=== PATIENT | female | born 1945 | race Asian ===

== ENCOUNTER 2016-07-05 15:50 | Inpatient (IN) | payer OTHER ==
[~2016-07-05] VITALS: Ht 162.6 cm; Wt 59.0 kg
--- NOTE | 2016-07-05 16:14 | Emergency Room Report ---
History of Present Illness General Chief Complaint: Abdominal Pain Source: Patient Present Illness HPI Patient presents with abdominal pain and near syncope today. She's been having episodes of abdominal pain for 10 days. Her doctor put her on antibiotics and then just started omeprazole 2 days ago. The pain is intermittent and sometimes severe. It is epigastric in radiates somewhat towards her back. She denies any fevers or chills he feels flushed at this time. She denies any chest pain, shortness of breath, cough, sore throat, dysuria, change in bowel habits. She never had this before. She denies pain at this time but has fairly significant nausea and a strange feeling in her abdomen - almost like pressure or emptiness. Was to have endoscopy Wednesday. Allergies: Coded Allergies: No Known Allergies (Unverified , 07/05/16) Patient History Past Medical History: see triage record Social History: Denies: alcohol use, smoking Social History Narrative B [place] and lives at home Reviewed Nursing Documentation: PMH: Agreed, PSxH: Agreed Nursing Documentation-PMH Past Medical History: No Stated History Review of Systems All Other Systems: negative except mentioned in HPI Physical Exam Vital Signs Date Time Temp Pulse Resp B/P Pulse Ox O2 Delivery O2 Flow Rate FiO2 07/05/16 15:50 98.2 115 18 118/66 99 Room Air Sp02 EP Interpretation: reviewed, normal General Appearance: well appearing, no apparent distress, GCS 15 Head: normocephalic Eyes: bilateral eye PERRL, bilateral eye normal inspection ENT: moist mucus membranes Neck: supple Respiratory: lungs clear, normal breath sounds Cardiovascular #1: regular rate, rhythm Cardiovascular #2: 2+ radial (R) Gastrointestinal: normal bowel sounds - slightly hyperactive, soft, no mass, no rebound, tenderness - epigastric Musculoskeletal: back normal, gait/station normal, normal range of motion Neurologic: alert, oriented x3, grossly normal Psychiatric: anxious Skin: other - plethoric and hot Medical Decision Making Diagnostic Impression: Primary Impression: Abdominal pain Qualified Codes: R10.13 - Epigastric pain Additional Impressions: Leukocytosis Qualified Codes: D72.825 - Bandemia Fever Qualified Codes: R50.81 - Fever presenting with conditions classified elsewhere ER Course Patient presents with fever, abdominal pain and near syncope. DDx: diverticulitis, gall bladder disease, UTI, hepatitis, viral gastroenteritis ( time course against this), amongst others. Complicated patient needing emergent evaluation with labs, EKG, CT abdomen. Treatment with IV hydration, zofran, pepcid. Patient declines other pain medicine at this time. Leukocytosis present. Normal lipase, LFTs. UA clear. CT with hepatic cysts. No other significant surgical pathology (preliminary reading). Patient still with intermittent pain and nausea. No guarding, but not appear well. Due to lack of definitive diagnosis and poor tolerance of PO, will admit for IV hydration, antibiotics, zofran and observation. Consider GI consultation. Admit med Dr. Bustamante. Laboratory Tests Test 07/05/16 16:39 07/05/16 18:01 White Blood Count 16.8 K/UL (4.8-10.8) H Red Blood Count 3.76 M/UL (4.20-5.40) L Hemoglobin 10.7 G/DL (12.0-16.0) L Hematocrit 32.4 % (37.0-47.0) L Mean Corpuscular Volume 86 FL (80-99) Mean Corpuscular Hemoglobin 28.5 PG (27.0-31.0) Mean Corpuscular Hemoglobin Concent 33.1 G/DL (32.0-36.0) Red Cell Distribution Width 11.4 % (11.6-14.8) L Platelet Count 270 K/UL (150-450) Mean Platelet Volume 6.3 FL (6.5-10.1) L Neutrophils (%) (Auto) 85.9 % (45.0-75.0) H Lymphocytes (%) (Auto) 8.6 % (20.0-45.0) L Monocytes (%) (Auto) 5.0 % (1.0-10.0) Eosinophils (%) (Auto) 0.2 % (0.0-3.0) Basophils (%) (Auto) 0.4 % (0.0-2.0) Prothrombin Time 11.1 SEC (9.30-11.50) Prothrombin Time INR 1.1 (0.9-1.1) PTT 35 SEC (23-33) H Sodium Level 133 mEQ/L (135-145) L Potassium Level 4.4 mEQ/L (3.4-4.9) Chloride Level 92 mEQ/L (98-107) L Carbon Dioxide Level 23 mEQ/L (20-30) Anion Gap 18 (5-15) H Blood Urea Nitrogen 8 mg/dL (7-23) Creatinine 0.6 mg/dL (0.5-0.9) Estimate Glomerular Filtration Rate > 60 mL/min (>60) Glucose Level 136 mg/dL (74-106) H Lactic Acid Level 0.80 mmol/L (0.66-2.22) Calcium Level 8.9 mg/dL (8.6-10.2) Total Bilirubin 0.6 mg/dL (0.0-1.2) Aspartate Amino Transferase (AST) 18 U/L (5-40) Alanine Aminotransferase (ALT) 7 U/L (3-33) Alkaline Phosphatase 96 U/L (35-104) Troponin I < 0.30 ng/mL (<=0.30) Total Protein 7.5 g/dL (6.6-8.7) Albumin 3.3 g/dL (3.5-5.2) L Globulin 4.2 g/dL Albumin/Globulin Ratio 0.7 (1.0-2.7) L Lipase 49 U/L (< 60) Urine Color Yellow Urine Appearance Clear Urine pH 7 (4.5-8.0) Urine Specific [place] 1.005 (1.005-1.035) Urine Protein Negative (NEGATIVE) Urine Glucose (UA) Negative (NEGATIVE) Urine Ketones 2+ (NEGATIVE) H Urine Occult Blood 2+ (NEGATIVE) H Urine Nitrite Negative (NEGATIVE) Urine Bilirubin Negative (NEGATIVE) Urine Urobilinogen Normal MG/DL (0.0-1.0) Urine Leukocyte Esterase Negative (NEGATIVE) Urine RBC 0-2 /HPF (0 - 2) Urine WBC 0-2 /HPF (0 - 2) Urine Squamous Epithelial Cells Occasional /LPF Urine Bacteria None /HPF (NONE) EKG Diagnostic Results Rate: tachycardiac ST Segments: no acute changes Rhythm Strip Diag. Results EP Interpretation: yes Rhythm: no PVC's, no ectopy, other - ST CT/MRI/US Diagnostic Results CT/MRI/US Diagnostic Results : Imaging Test Ordered: abd pelvis Impression liver cysts, no surgical pathology Impression: No definite acute process Doubt but cannot completely rule out cholelithiasis Hepatic cysts. Subcentimeter low-attenuation liver lesions, too small to characterize, most likely small cysts. No further followup needed Evidence of old granulomatous disease within the spleen and liver capsule Last Vital Signs Date Time Temp Pulse Resp B/P Pulse Ox O2 Delivery O2 Flow Rate FiO2 07/05/16 15:50 98.2 115 18 118/66 99 Room Air Status: improved Disposition: ADMITTED INPATIENT Condition: Serious Scripts Vancomycin HCl (Vancomycin HCl) 500 Mg Vial 250 MG ORAL Q6HR for 10 Days, VIAL Prov: ESTEPHANIA BUSTAMANTE 07/13/16 Hydrocodone Bit/Acetaminophen 10-325* (HYDROCODON-ACETAMINOPHN 10-325*) 1 Each Tablet 1 EA ORAL Q4H Y, #30 TAB Prov: ESTEPHANIA BUSTAMANTE 07/13/16 Magdiel Barakat M.D. Jul 05, 2016 16:14
[2016-07-05] MEDS ORDERED: Famotidine 20 MG/ 2ML VIAL IVP ONE (16:15)
[2016-07-05 16:45] VITALS: BP 104/80
[2016-07-05 16:58] LABS: LYMPHOCYTES % (AUTO) 8.6 % (20.0-45.0); MEAN CORPUSCULAR HEMOGLOBIN 28.5 PG (27.0-31.0); MEAN CORPUSCULAR HGB CONC 33.1 G/DL (32.0-36.0); MEAN CORPUSCULAR VOLUME 86 FL (80-99); MEAN PLATELET VOLUME 6.3 FL (6.5-10.1); NEUTROPHILS % (AUTO) 85.9 % (45.0-75.0); PLATELET COUNT 270 K/UL (150-450); RED BLOOD COUNT 3.76 M/UL (4.20-5.40); RED CELL DISTRIBUTION WIDTH 11.4 % (11.6-14.8); WHITE BLOOD COUNT 16.8 K/UL (4.8-10.8)
[2016-07-05 16:59] LABS: BASOPHILS % (AUTO) 0.4 % (0.0-2.0); EOSINOPHILS % (AUTO) 0.2 % (0.0-3.0)
[2016-07-05] MEDS ORDERED: Cefepime HCl 1 GM in D5W 55 ML IVPB ONE (17:00)
[2016-07-05] MEDS ORDERED: metroNIDAZOLE 500mg 100 ML IVPB ONE (17:00)
[2016-07-05 17:09] LABS: INR 1.1 (0.9-1.1); PROTHROMBIN TIME 11.1 SEC (9.30-11.50)
[2016-07-05 17:17] LABS: TROPONIN I < 0.30 ng/mL (<=0.30)
[2016-07-05 17:20] LABS: ALANINE AMINOTRANSFERASE 7 U/L (3-33); ALBUMIN/GLOBULIN RATIO 0.7 (1.0-2.7); ANION GAP 18 (5-15); ASPARTATE AMINO TRANSFERASE 18 U/L (5-40); CALCIUM 8.9 mg/dL (8.6-10.2); CARBON DIOXIDE 23 mEQ/L (20-30); CHLORIDE 92 mEQ/L (98-107); CREATININE 0.6 mg/dL (0.5-0.9); GLOMERULAR FILTRATION RATE > 60 mL/min (>60); HEMOLYSIS 81; LIPASE 49 U/L (< 60); POTASSIUM 4.4 mEQ/L (3.4-4.9); SODIUM 133 mEQ/L (135-145); TOTAL PROTEIN 7.5 g/dL (6.6-8.7)
[2016-07-05] MEDS ORDERED: Cefepime 1gm vial ONE (17:50)
[2016-07-05 18:28] LABS: APPEARANCE,URINE CLEAR; KETONES,URINE 2+ (NEGATIVE); LEUKOCYTE ESTERASE ,URINE NEGATIVE (NEGATIVE); NITRITE,URINE NEGATIVE (NEGATIVE); PH,URINE 7 (4.5-8.0); PROTEIN,URINE NEGATIVE (NEGATIVE); UROBILINOGEN,URINE NORMAL MG/DL (0.0-1.0)
[2016-07-05 18:37] LABS: RBC,URINE 0-2 /HPF (0 - 2); SQUAMOUS EPITHELIAL CELL,UR OCCASIONAL /LPF (NONE/OCC); WBC,URINE 0-2 /HPF (0 - 2)
[2016-07-05 19:29] VITALS: BP 107/48
[2016-07-05 21:26] VITALS: BP 102/55
[2016-07-05] MEDS ORDERED: NKM (22:39)
[2016-07-05 23:44] VITALS: BP 110/62
[2016-07-06] VITALS: BP 124/77
[2016-07-06] MEDS ORDERED: Vancomycin 1gm inj IVPB ONE (02:32)
[2016-07-06] MEDS ORDERED: Zosyn 3.375gm inj ONE (02:33)
[2016-07-06] MEDS: D5NS 1,000 ML IV SCH ×3 (02:39→22:13)
[2016-07-06] MEDS: Vancomycin 1gm in D5W 275ml IVPB SCH (02:39)
[2016-07-06 04:00] VITALS: BP 121/74
[2016-07-06] MEDS: Piperacillin/Tazobactam 3.375 GM in D5W 110 ML IVPB SCH ×3 (05:47→22:36)
[2016-07-06 07:48] LABS: BASOPHILS % (AUTO) 0.4 % (0.0-2.0); EOSINOPHILS % (AUTO) 1.2 % (0.0-3.0); LYMPHOCYTES % (AUTO) 21.3 % (20.0-45.0); MEAN CORPUSCULAR HEMOGLOBIN 27.3 PG (27.0-31.0); MEAN CORPUSCULAR VOLUME 85 FL (80-99); MEAN PLATELET VOLUME 6.6 FL (6.5-10.1); MONOCYTES % (AUTO) 6.1 % (1.0-10.0); PLATELET COUNT 249 K/UL (150-450); RED BLOOD COUNT 3.55 M/UL (4.20-5.40); RED CELL DISTRIBUTION WIDTH 11.7 % (11.6-14.8); WHITE BLOOD COUNT 9.4 K/UL (4.8-10.8)
[2016-07-06 07:50] LABS: ALANINE AMINOTRANSFERASE < 5 U/L (3-33); ALBUMIN/GLOBULIN RATIO 0.7 (1.0-2.7); ANION GAP 13 (5-15); ASPARTATE AMINO TRANSFERASE 8 U/L (5-40); CALCIUM 8.5 mg/dL (8.6-10.2); CARBON DIOXIDE 24 mEQ/L (20-30); CHLORIDE 106 mEQ/L (98-107); CREATININE 0.5 mg/dL (0.5-0.9); GLOMERULAR FILTRATION RATE > 60 mL/min (>60); HEMOLYSIS 1; POTASSIUM 3.8 mEQ/L (3.4-4.9); SODIUM 143 mEQ/L (135-145); TOTAL PROTEIN 6.3 g/dL (6.6-8.7)
--- NOTE | 2016-07-06 07:59 | History and Physical Report ---
DATE OF ADMISSION: 07/05/2016 CHIEF COMPLAINT: Abdominal pain HISTORY OF PRESENT ILLNESS: The patient is a 71-year-old female. She has no past medical history, presented with generalized malaise and flu-like symptoms. About a week ago, she developed some abdominal discomfort and then the day of admission, she had fevers and chills. She has had no vomiting. She only had one episode of diarrhea and she had a 10 pound weight loss. She saw her PMD, who ordered multiple medications for her, which she did not take and she does not know the names of these medications. She had blood test done, but she is unaware of any of the results because of continued worsening malaise, weakness and abdominal pain. She presented to the emergency room. On evaluation there, laboratories were notable for white count of 17,000, sodium of 133, and LFTs were unremarkable. Urine was clear. The patient had a CAT scan of the abdomen that according the ER physician was unremarkable. There is no report yet. The patient is now admitted. PAST SURGICAL HISTORY: None. PAST SURGICAL HISTORY: None. MEDICATIONS: Current medicines, none. ALLERGIES: None. SOCIAL HISTORY: The patient denies tobacco, ethanol, or drugs. FAMILY HISTORY: None. REVIEW OF SYSTEMS: Negative except for generalized malaise, weakness, fever, chills, abdominal discomfort, and one episode of diarrhea. PHYSICAL EXAMINATION: VITAL SIGNS: Temperature 97.4 degrees, blood pressure 121/74, pulse 86, and respirations 18. GENERAL: The patient is in no apparent distress. HEART: Regular rhythm. LUNGS: Clear. ABDOMEN: Soft, nontender, and nondistended. EXTREMITIES: Without clubbing, cyanosis, or edema. LABORATORY DATA: White count was 17,000, hemoglobin 10, hematocrit 32, and platelet count of 270,000. Coags are normal. Sodium 133 and potassium 4.4. Lactic acid was 0.8. LFTs were normal. Lipase is 49. ASSESSMENT: This is a pleasant female with complaints of abdominal pain. Leukocytosis of unclear etiology. 1. Abdominal pain. 2. Leukocytosis. 3. Dehydration. PLAN: Followup CT results. GI consultation. Check stool for occult blood. Empiric antibiotic therapy. Gentle hydration. Clear liquid diet for now. Jesus Whitney M.D. DR: Amor JOB#: [id number] CC:
[2016-07-06 08:09] VITALS: BP 121/70
[2016-07-06] MEDS: Heparin 5000 units/ml inj SUBQ SCH ×2 (09:16→21:32)
--- NOTE | 2016-07-06 11:33 | General Progress Note ---
Assessment/Plan Assessment/Plan GI Consult Dictated Abd pain and diarrhea ? Gastroenteritis Will check U/s and stools Add flagyl Needs EGD/Colon for evaluation of Anemia (in or outpt) Thank you Adrianne Subjective Allergies: Coded Allergies: No Known Allergies (Unverified , 07/05/16) Objective Last 24 Hour Vital Signs Date Time Temp Pulse Resp B/P Pulse Ox O2 Delivery O2 Flow Rate FiO2 07/06/16 08:09 96.8 83 17 121/70 97 Room Air 07/06/16 04:00 97.4 76 18 121/74 98 Room Air 07/06/16 00:00 97.2 78 18 124/77 98 Room Air 07/05/16 23:45 98.5 82 15 110/62 96 Room Air 07/05/16 23:44 98.5 80 15 110/62 96 Room Air 07/05/16 21:26 98.5 83 15 102/55 96 Room Air 07/05/16 19:29 98.5 89 18 107/48 98 Room Air 07/05/16 17:49 102.7 07/05/16 16:45 102.7 99 22 104/80 96 Room Air 07/05/16 15:50 98.2 115 18 118/66 99 Room Air Intake and Output 07/05/16 07/06/16 19:00 07:00 Intake Total 851 ml Output Total 200 ml Balance 651 ml Intake Oral 220 ml IV Total 631 ml Output Urine Total 200 ml # Voids 1 Laboratory Tests 07/05/16 16:39: White Blood Count 16.8H, Red Blood Count 3.76L, Hemoglobin 10.7L, Hematocrit 32.4L, Mean Corpuscular Volume 86, Mean Corpuscular Hemoglobin 28.5, Mean Corpuscular Hemoglobin Concent 33.1, Red Cell Distribution Width 11.4L, Platelet Count 270, Mean Platelet Volume 6.3L, Neutrophils (%) (Auto) 85.9H, Lymphocytes (%) (Auto) 8.6L, Monocytes (%) (Auto) 5.0, Eosinophils (%) (Auto) 0.2, Basophils (%) (Auto) 0.4, Prothrombin Time 11.1, Prothromb Time International Ratio 1.1, Activated Partial Thromboplast Time 35H, Sodium Level 133L, Potassium Level 4.4, Chloride Level 92L, Carbon Dioxide Level 23, Anion Gap 18H, Blood Urea Nitrogen 8, Creatinine 0.6, Estimat Glomerular Filtration Rate > 60, Glucose Level 136H, Lactic Acid Level 0.80, Calcium Level 8.9, Total Bilirubin 0.6, Aspartate Amino Transf (AST/SGOT) 18, Alanine Aminotransferase ( ALT/SGPT) 7, Alkaline Phosphatase 96, Troponin I < 0.30, Total Protein 7.5, Albumin 3.3L, Globulin 4.2, Albumin/Globulin Ratio 0.7L, Lipase 49 07/05/16 18:01: Urine Color Yellow, Urine Appearance Clear, Urine pH 7, Urine Specific [place] 1.005, Urine Protein Negative, Urine Glucose (UA) Negative, Urine Ketones 2+H, Urine Occult Blood 2+H, Urine Nitrite Negative, Urine Bilirubin Negative, Urine Urobilinogen Normal, Urine Leukocyte Esterase Negative, Urine RBC 0-2, Urine WBC 0-2, Urine Squamous Epithelial Cells Occasional, Urine Bacteria None 07/06/16 06:06: White Blood Count 9.4, Red Blood Count 3.55L, Hemoglobin 9.7L, Hematocrit 30.3L , Mean Corpuscular Volume 85, Mean Corpuscular Hemoglobin 27.3, Mean Corpuscular Hemoglobin Concent 32.0, Red Cell Distribution Width 11.7, Platelet Count 249, Mean Platelet Volume 6.6, Neutrophils (%) (Auto) 71.0, Lymphocytes (% ) (Auto) 21.3, Monocytes (%) (Auto) 6.1, Eosinophils (%) (Auto) 1.2, Basophils ( %) (Auto) 0.4, Sodium Level 143#, Potassium Level 3.8, Chloride Level 106, Carbon Dioxide Level 24, Anion Gap 13, Blood Urea Nitrogen 4L, Creatinine 0.5, Estimat Glomerular Filtration Rate > 60, Glucose Level 144H, Calcium Level 8.5L , Total Bilirubin 0.3, Aspartate Amino Transf (AST/SGOT) 8, Alanine Aminotransferase (ALT/SGPT) < 5, Alkaline Phosphatase 84, Total Protein 6.3L, Albumin 2.6L, Globulin 3.7, Albumin/Globulin Ratio 0.7L Height (Feet): 5 Height (Inches): 4.00 Weight (Pounds): 130 OLEG RANDALL Jul 06, 2016 11:33
--- NOTE | 2016-07-06 12:17 | Cardiology Report ---
APPROVED REPORT EKG Measurement Heart [id number] CA [id number] Sinus tachycardia Otherwise normal ECG
[2016-07-06 12:34] VITALS: BP 125/69
[2016-07-06] MEDS ORDERED: Influenza Virus Vaccine 0.5ml IM ONE (13:00)
[2016-07-06] MEDS ORDERED: Pneumococcal Vaccine 25mcg/0.5ml IM ONE (13:00)
[2016-07-06] MEDS ORDERED: D5NS 1000ml IV ONE (15:11)
[2016-07-06] MEDS ORDERED: Tubing IV Secondary IV ONE (15:11)
[2016-07-06 16:10] VITALS: BP 136/77
[2016-07-06] MEDS: metroNIDAZOLE 500mg 100 ML IVPB SCH ×2 (16:18→21:30)
[2016-07-06 20:00] VITALS: BP 139/70
--- NOTE | 2016-07-06 20:39 | Consultation ---
DATE OF CONSULTATION: INFECTIOUS DISEASES CONSULTATION REFERRING PHYSICIAN: Jesus Whitney M.D. REASON FOR CONSULTATION: Leukocytosis. HISTORY OF PRESENTING ILLNESS: This is a 71-year-old lady with no significant past medical history, who came in with some abdominal pain and some fevers. She denies any vomiting or diarrhea. She found to have a leukocytosis and an Infectious Diseases consultation has been obtained for antibiotics. PAST MEDICAL HISTORY: Nothing significant. MEDICATIONS: As an inpatient, she is on subcutaneous heparin, Zosyn, intravenous vancomycin, Zofran, Tylenol. ALLERGIES: No known drug allergies. SOCIAL HISTORY: She does not smoke, drink, or use drugs. FAMILY HISTORY: Noncontributory. REVIEW OF SYSTEMS: Respiratory: She did have fever and chills. Cardiac: No chest pain. No palpitation. No dizziness. No syncope. Gastrointestinal: She does have some abdominal pain in the epigastric area. No vomiting or diarrhea. PHYSICAL EXAMINATION: VITAL SIGNS: Temperature of 96.8, pulse of 83, respiratory rate 17, blood pressure 121/70, O2 saturation of 97%. HEENT: Pupils are equally reactive to light and accommodation. Mouth appears clean without thrush. NECK: Supple. No adenopathy. No JVD. CARDIOVASCULAR: Regular rate and rhythm. No murmurs. LUNGS: Clear to auscultation bilaterally. No crackles. No wheezes. ABDOMEN: Soft and nontender. No organomegaly. EXTREMITIES: No cyanosis. No clubbing. No edema. LABORATORY DATA: White count 15.8 yesterday, white count 9.4 on 07/06/2016, hemoglobin 9.7, hematocrit 30.3, MCV 85, platelet count of 249,000. Sodium 143, potassium 3.8, chloride 106, bicarb 24, BUN 4 creatinine 0.5, glucose 144. Calcium 8.5. Total bilirubin 0.3. AST 8, ALT less than 5, alkaline phosphatase 84. Total protein 6.3 and albumin 2.6. UA showing 0 to 2 white cells. On 07/05/2016 lipase was 49. ASSESSMENT: 1. This is a 71-year-old lady with no significant past medical history, who comes in with abdominal pain, fever and chills. Would be concerned regarding possible cholecystitis or pancreatitis. 2. We would also be concerned regarding urinary tract infection. PLAN: 1. Continue vancomycin and Zosyn for now. 2. We will follow up on blood cultures. 3. We will order urine cultures. 4. We will follow up on CT abdomen. I would like to thank, Dr. Whitney for this consultation. Shakuntala Ninfa Gaspar DR: Andrea JOB#: [id number] CC: Jesus Whitney M.D.
--- NOTE | 2016-07-06 20:59 | Consultation ---
DATE OF CONSULTATION: 07/06/2016 GASTROINTESTINAL CONSULTATION CONSULTING PHYSICIAN: Sudhir Silver M.D. CHIEF COMPLAINT: I was asked to see this patient for evaluation of abdominal pain. HISTORY OF PRESENT ILLNESS: The patient is a pleasant 71-year-old woman without significant past medical history who came into the hospital for a week of abdominal symptoms. The patient states that she has had some low-grade fevers and malaise and muscle pains, and also had noted some abdominal discomfort. She had some fevers and chills on the day of admission, and she came to the hospital. She has had no vomiting, but had some diarrhea this morning. She has also had a 10-pound weight loss. She was supposed to have some outpatient workup, but she was admitted to the hospital here. She has never had endoscopy or colonoscopy, and she denies any hematochezia. She is unaware of her anemia. She has been healthy with essentially no medical problems. She had a CT scan, which reportedly was negative in the emergency room, but her labs showed leukocytosis. PAST MEDICAL HISTORY: Otherwise unremarkable. FAMILY HISTORY: Negative. SOCIAL HISTORY: The patient does not smoke or drink alcohol. ALLERGIES: None. REVIEW OF SYSTEMS: Otherwise negative. PHYSICAL EXAMINATION: GENERAL: The patient is well-developed, well-nourished woman, seen in her room HEENT: Normocephalic and atraumatic. Sclerae anicteric. NECK: Supple. CHEST: Clear to auscultation. CARDIOVASCULAR: Regular rate. ABDOMEN: Soft with good bowel sounds. There was no appreciable tenderness to palpation or masses or guarding. The patient did point to the epigastric area as the region of her pain. EXTREMITIES: No edema. LABORATORY DATA: Noted. ASSESSMENT: This patient presents with anemia, which requires endoscopy and colonoscopy for workup to rule out a malignancy. This was explained to the patient, and she was advised to have these procedures done either an inpatient or as an outpatient. With respect to her presentation, however, the fevers, malaise, and chills are suggestive of possible viral syndrome or viral gastroenteritis. Bacterial enteritis will be another consideration and that could explain the fever and diarrhea as well. The patient should have her stools checked for usual pathogens and I would add the Flagyl to her current selection of antibiotics. Should the patient's symptoms persist and the workup is negative, then the patient to undergo further evaluation with endoscopy and colonoscopy earlier. Otherwise, it is probably better to wait until her acute illness is resolved before evaluating her for problem for anemia. RECOMMENDATIONS: Per above discussion and per orders written in the chart. Thank you for asking me to participate in the care of this patient. Sudhir Silver M.D. DR: STEFAN JOB#: [id number] CC:
[2016-07-07] VITALS: BP 126/72
[2016-07-07] MEDS: Vancomycin 1gm in D5W 275ml IVPB SCH (02:36)
[2016-07-07 04:00] VITALS: BP 124/73
--- NOTE | 2016-07-07 05:39 | General Progress Note ---
Assessment/Plan Problem List: (1) Fever ICD Codes: R50.9 - Fever, unspecified SNOMED: 469069567 Qualifiers: Qualified Codes: R50.81 - Fever presenting with conditions classified elsewhere (2) Leukocytosis ICD Codes: D72.829 - Elevated white blood cell count, unspecified SNOMED: 574686704, 716722559 Qualifiers: Qualified Codes: D72.825 - Bandemia (3) Abdominal pain ICD Codes: R10.9 - Unspecified abdominal pain SNOMED: [id number], [id number] Qualifiers: Qualified Codes: R10.13 - Epigastric pain Status: stable, progressing Assessment/Plan ivf antiemetics as needed follow up cultures follow up ultrasound advance diet Subjective ROS Limited/Unobtainable: No Constitutional: Reports: malaise, weakness HEENT: Reports: no symptoms Cardiovascular: Reports: no symptoms Respiratory: Reports: no symptoms Gastrointestinal/Abdominal: Reports: abdominal pain, diarrhea Genitourinary: Reports: no symptoms Neurologic/Psychiatric: Reports: no symptoms Endocrine: Reports: no symptoms Hematologic/Lymphatic: Reports: anemia Allergies: Coded Allergies: No Known Allergies (Unverified , 07/05/16) All Systems: reviewed and negative except above Subjective tolerated clear last night. abd delores done- no results. no vomiting. had some mild diarrhea. feels "a little better." Objective Last 24 Hour Vital Signs Date Time Temp Pulse Resp B/P Pulse Ox O2 Delivery O2 Flow Rate FiO2 07/07/16 04:00 98.6 85 18 124/73 96 Room Air 07/07/16 00:00 98.2 86 18 126/72 93 Room Air 07/06/16 20:00 100.0 89 20 139/70 98 Room Air 07/06/16 16:10 98.6 92 22 136/77 95 Room Air 07/06/16 12:34 97.1 82 18 125/69 99 Room Air 07/06/16 08:09 96.8 83 17 121/70 97 Room Air Intake and Output 07/06/16 07/07/16 19:00 07:00 Intake Total 360 ml Balance 360 ml Intake Oral 360 ml # Voids 2 2 # Bowel Movements 1 Laboratory Tests 07/06/16 06:06: White Blood Count 9.4, Red Blood Count 3.55L, Hemoglobin 9.7L, Hematocrit 30.3L , Mean Corpuscular Volume 85, Mean Corpuscular Hemoglobin 27.3, Mean Corpuscular Hemoglobin Concent 32.0, Red Cell Distribution Width 11.7, Platelet Count 249, Mean Platelet Volume 6.6, Neutrophils (%) (Auto) 71.0, Lymphocytes (% ) (Auto) 21.3, Monocytes (%) (Auto) 6.1, Eosinophils (%) (Auto) 1.2, Basophils ( %) (Auto) 0.4, Sodium Level 143#, Potassium Level 3.8, Chloride Level 106, Carbon Dioxide Level 24, Anion Gap 13, Blood Urea Nitrogen 4L, Creatinine 0.5, Estimat Glomerular Filtration Rate > 60, Glucose Level 144H, Calcium Level 8.5L , Total Bilirubin 0.3, Aspartate Amino Transf (AST/SGOT) 8, Alanine Aminotransferase (ALT/SGPT) < 5, Alkaline Phosphatase 84, Total Protein 6.3L, Albumin 2.6L, Globulin 3.7, Albumin/Globulin Ratio 0.7L 07/06/16 17:03: Stool Occult Blood Negative Height (Feet): 5 Height (Inches): 4.00 Weight (Pounds): 130 General Appearance: WD/WN, alert Neck: normal alignment, supple, normal inspection Cardiovascular: normal rate Respiratory/Chest: chest wall non-tender, lungs clear Abdomen: normal bowel sounds, non tender, soft, no organomegaly, no mass Edema: no edema noted Arm (L), no edema noted Arm (R), no edema noted Leg (L), no edema noted Leg (R), no edema noted Pedal (L), no edema noted Pedal (R), no edema noted Generalized Neurologic: offline cutter II-XII grossly normal, no motor/sensory deficits, abnormal gait , alert ESTEPHANIA BUSTAMANTE Jul 07, 2016 05:39
[2016-07-07] MEDS: metroNIDAZOLE 500mg 100 ML IVPB SCH (06:01)
[2016-07-07 06:59] LABS: BASOPHILS % (AUTO) 0.5 % (0.0-2.0); EOSINOPHILS % (AUTO) 0.8 % (0.0-3.0); LYMPHOCYTES % (AUTO) 17.5 % (20.0-45.0); MEAN CORPUSCULAR HEMOGLOBIN 27.8 PG (27.0-31.0); MEAN CORPUSCULAR HGB CONC 32.1 G/DL (32.0-36.0); MEAN CORPUSCULAR VOLUME 87 FL (80-99); MEAN PLATELET VOLUME 6.1 FL (6.5-10.1); MONOCYTES % (AUTO) 6.7 % (1.0-10.0); NEUTROPHILS % (AUTO) 74.5 % (45.0-75.0); PLATELET COUNT 252 K/UL (150-450); RED BLOOD COUNT 3.63 M/UL (4.20-5.40); RED CELL DISTRIBUTION WIDTH 11.1 % (11.6-14.8)
[2016-07-07] MEDS: Piperacillin/Tazobactam 3.375 GM in D5W 110 ML IVPB SCH (07:06)
[2016-07-07 07:12] LABS: ALANINE AMINOTRANSFERASE 5 U/L (3-33); ALBUMIN/GLOBULIN RATIO 0.7 (1.0-2.7); ANION GAP 13 (5-15); ASPARTATE AMINO TRANSFERASE 10 U/L (5-40); CALCIUM 8.6 mg/dL (8.6-10.2); CARBON DIOXIDE 25 mEQ/L (20-30); CHLORIDE 102 mEQ/L (98-107); CREATININE 0.6 mg/dL (0.5-0.9); GLOMERULAR FILTRATION RATE > 60 mL/min (>60); HEMOLYSIS 0; SODIUM 140 mEQ/L (135-145); TOTAL PROTEIN 6.3 g/dL (6.6-8.7)
[2016-07-07 08:00] VITALS: BP 120/74
[2016-07-07] MEDS: D5NS 1,000 ML IV SCH (08:18)
[2016-07-07] MEDS: Heparin 5000 units/ml inj SUBQ SCH ×2 (08:46→21:21)
--- NOTE | 2016-07-07 11:02 | Diagnostic Imaging Report ---
Indications: Abdominal pain and nausea Technique: Transabdominal real-time grayscale and duplex Doppler imaging of the upper abdomen and retroperitoneum was performed. Findings: Comparison: CT abdomen pelvis 07/05/2016. Liver normal size and surface contour, parenchymal echogenicity. Several adjacent circumscribed anechoic foci in left lobe up to 17 mm. No additional Focal lesions. Gallbladder unremarkable. No intraluminal stones or sludge. No mural thickening or adjacent fluid collections. Sonographic Gabriel sign not reported.. Bile ducts normal caliber. Common bile duct 6 mm. Pancreas visualized portions unremarkable. Spleen unremarkable. Right kidney unremarkable. Left kidney unremarkable. Abdominal aorta, intrahepatic portion of inferior vena cava patent, normal caliber. Duplex Doppler imaging demonstrates antegrade flow in splenic, portal, hepatic veins. No ascites. IMPRESSION: Hepatic cysts Otherwise negative abdominal ultrasound.
--- NOTE | 2016-07-07 11:22 | Infectious Diseases Prog Note ---
Assessment/Plan Assessment/Plan antibiotics : vancomycin iv, zosyn, flagyl A 1. c.diff colitis 2. fever improving P 1. continue flagyl 12 more days 2. d/c vancomycin iv, zosyn 3. will follow up cultures Subjective Constitutional: Denies: chills, fever Respiratory: Denies: dry cough, shortness of breath Gastrointestinal/Abdominal: Reports: diarrhea, nausea, Denies: vomiting Musculoskeletal: Reports: pain - in abdomen Allergies: Coded Allergies: No Known Allergies (Unverified , 07/05/16) Objective Vital Signs Last 24 Hour Vital Signs Date Time Temp Pulse Resp B/P Pulse Ox O2 Delivery O2 Flow Rate FiO2 07/07/16 08:00 100.0 86 17 120/74 98 Room Air 07/07/16 04:00 98.6 85 18 124/73 96 Room Air 07/07/16 00:00 98.2 86 18 126/72 93 Room Air 07/06/16 20:00 100.0 89 20 139/70 98 Room Air 07/06/16 16:10 98.6 92 22 136/77 95 Room Air 07/06/16 12:34 97.1 82 18 125/69 99 Room Air Height (Feet): 5 Height (Inches): 4.00 Weight (Pounds): 130 Respiratory/Chest: lungs clear Cardiovascular: normal rate, regular rhythm, no gallop/murmur Abdomen: tender - epigastric area Extremities: no edema Microbiology Date/Time Source Procedure Growth Status 07/05/16 16:40 Blood Blood Culture - Preliminary NO GROWTH AFTER 24 HOURS Resulted 07/05/16 16:25 Blood Blood Culture - Preliminary NO GROWTH AFTER 24 HOURS Resulted 07/06/16 17:03 Stool Stool Culture Pending Resulted 07/06/16 17:03 Stool Clostridium difficile Toxin Assay - Final Resulted 07/06/16 17:03 Urine,Clean Catch Urine Culture - Preliminary NO GROWTH Resulted Laboratory Tests Test 07/06/16 17:03 07/07/16 05:45 Stool Occult Blood Negative (NEGATIVE) White Blood Count 10.0 K/UL (4.8-10.8) Red Blood Count 3.63 M/UL (4.20-5.40) L Hemoglobin 10.1 G/DL (12.0-16.0) L Hematocrit 31.4 % (37.0-47.0) L Mean Corpuscular Volume 87 FL (80-99) Mean Corpuscular Hemoglobin 27.8 PG (27.0-31.0) Mean Corpuscular Hemoglobin Concent 32.1 G/DL (32.0-36.0) Red Cell Distribution Width 11.1 % (11.6-14.8) L Platelet Count 252 K/UL (150-450) Mean Platelet Volume 6.1 FL (6.5-10.1) L Neutrophils (%) (Auto) 74.5 % (45.0-75.0) Lymphocytes (%) (Auto) 17.5 % (20.0-45.0) L Monocytes (%) (Auto) 6.7 % (1.0-10.0) Eosinophils (%) (Auto) 0.8 % (0.0-3.0) Basophils (%) (Auto) 0.5 % (0.0-2.0) Sodium Level 140 mEQ/L (135-145) Potassium Level 3.0 mEQ/L (3.4-4.9) L Chloride Level 102 mEQ/L (98-107) Carbon Dioxide Level 25 mEQ/L (20-30) Anion Gap 13 (5-15) Blood Urea Nitrogen 4 mg/dL (7-23) L Creatinine 0.6 mg/dL (0.5-0.9) Estimat Glomerular Filtration Rate > 60 mL/min (>60) Glucose Level 184 mg/dL (74-106) H Calcium Level 8.6 mg/dL (8.6-10.2) Total Bilirubin 0.3 mg/dL (0.0-1.2) Aspartate Amino Transf (AST/SGOT) 10 U/L (5-40) Alanine Aminotransferase (ALT/SGPT) 5 U/L (3-33) Alkaline Phosphatase 84 U/L (35-104) Total Protein 6.3 g/dL (6.6-8.7) L Albumin 2.6 g/dL (3.5-5.2) L Globulin 3.7 g/dL Albumin/Globulin Ratio 0.7 (1.0-2.7) L SINAN AYOUB Jul 07, 2016 11:22
[2016-07-07] MEDS: HYDROmorphone 1mg/ml Carpuject IVP PRN ×3 (12:24→22:06)
[2016-07-07 12:28] VITALS: BP 127/67
--- NOTE | 2016-07-07 12:56 | Diagnostic Imaging Report ---
Clinical Indication: Abdominal pain Technique: Patient given oral contrast. IV administration nonionic contrast. Venous phase spiral acquisition obtained through the abdomen and pelvis. Multiplanar reconstructions were generated. Total dose length product 79 mGycm. CTDIvol(s) 16 mGy Comparison: None Findings: The appendix is not clearly demonstrated, but there are no findings to suggest acute appendicitis. No evidence of diverticulosis or diverticulitis. No small bowel distention small bowel wall thickening. No free or loculated intraperitoneal air or fluid. Distal esophagus, stomach, duodenum are unremarkable. Gallbladder is distended. There is slight irregularity of the tip of the fundus, which probably just represents redundant mucosa but a small gallstone could not be excluded. No definite gallstones otherwise. No biliary ductal dilatation. Liver demonstrates a capsular calcification in segment 4B, as well as multiple cysts and multiple low-attenuation lesions which are too small to characterize. The pancreas is unremarkable. The spleen demonstrates numerous calcifications. The adrenals, kidneys are unremarkable. No mesenteric or retroperitoneal mass or adenopathy. No pelvic mass or adenopathy. Uterus and adnexal structures appear unremarkable. The included lung bases are clear. Heart is mildly enlarged. The bones are unremarkable except for degenerative changes of the lumbosacral junction.. Impression: No definite acute process Doubt but cannot completely rule out cholelithiasis Hepatic cysts. Subcentimeter low-attenuation liver lesions, too small to characterize, most likely small cysts. No further followup needed Evidence of old granulomatous disease within the spleen and liver capsule This agrees with the preliminary interpretation provided overnight by Dr. Warren The CT scanner at [facility] is accredited by the [employer] and the scans are performed using protocols designed to limit radiation exposure to as low as reasonably achievable to attain images of sufficient resolution adequate for diagnostic evaluation.
[2016-07-07] MEDS: metroNIDAZOLE 500mg tab ORAL SCH ×2 (14:25→21:19)
[2016-07-07 16:00] VITALS: BP 135/82
--- NOTE | 2016-07-07 16:36 | General Progress Note ---
Assessment/Plan Assessment/Plan Assessment - C Diff (+) - Diarrhea - abd pain - anemia Recommendations - Flagyl x 10 days - Outpt EGD/Colon Subjective Allergies: Coded Allergies: No Known Allergies (Unverified , 07/05/16) Subjective Feels OK / better d/w patient re anemia Ukrainian speaking RN used to ensure communication advised should get EGD/Colon to screen for GI source, even though OB (-) Objective Last 24 Hour Vital Signs Date Time Temp Pulse Resp B/P Pulse Ox O2 Delivery O2 Flow Rate FiO2 07/07/16 12:28 98.2 89 17 127/67 98 Room Air 07/07/16 08:00 100.0 86 17 120/74 98 Room Air 07/07/16 04:00 98.6 85 18 124/73 96 Room Air 07/07/16 00:00 98.2 86 18 126/72 93 Room Air 07/06/16 20:00 100.0 89 20 139/70 98 Room Air 07/06/16 16:10 98.6 92 22 136/77 95 Room Air Intake and Output 07/06/16 07/07/16 19:00 07:00 Intake Total 610 ml Balance 610 ml Intake Oral 610 ml # Voids 2 3 # Bowel Movements 1 Laboratory Tests 07/06/16 17:03: Stool Occult Blood Negative 07/07/16 05:45: White Blood Count 10.0, Red Blood Count 3.63L, Hemoglobin 10.1L, Hematocrit 31.4L, Mean Corpuscular Volume 87, Mean Corpuscular Hemoglobin 27.8, Mean Corpuscular Hemoglobin Concent 32.1, Red Cell Distribution Width 11.1L, Platelet Count 252, Mean Platelet Volume 6.1L, Neutrophils (%) (Auto) 74.5, Lymphocytes (%) (Auto) 17.5L, Monocytes (%) (Auto) 6.7, Eosinophils (%) (Auto) 0.8, Basophils (%) (Auto) 0.5, Sodium Level 140, Potassium Level 3.0L, Chloride Level 102, Carbon Dioxide Level 25, Anion Gap 13, Blood Urea Nitrogen 4L, Creatinine 0.6, Estimat Glomerular Filtration Rate > 60, Glucose Level 184H, Calcium Level 8.6, Total Bilirubin 0.3, Aspartate Amino Transf (AST/SGOT) 10, Alanine Aminotransferase (ALT/SGPT) 5, Alkaline Phosphatase 84, Total Protein 6.3L, Albumin 2.6L, Globulin 3.7, Albumin/Globulin Ratio 0.7L Height (Feet): 5 Height (Inches): 4.00 Weight (Pounds): 130 Objective Thin woman NCAT supple CTA RRR Soft ND NT no edema OLEG RANDALL Jul 07, 2016 16:36
[2016-07-07] MEDS ORDERED: Tubing IV Secondary IV ONE (17:53)
[2016-07-07 20:00] VITALS: BP 132/78
[2016-07-08] VITALS: BP 114/68
[2016-07-08 03:45] VITALS: BP 112/69
[2016-07-08] MEDS: HYDROmorphone 1mg/ml Carpuject IVP PRN ×4 (04:53→19:02)
[2016-07-08] MEDS: metroNIDAZOLE 500mg tab ORAL SCH ×3 (05:44→21:48)
--- NOTE | 2016-07-08 08:33 | General Progress Note ---
Assessment/Plan Problem List: (1) Fever ICD Codes: R50.9 - Fever, unspecified SNOMED: 884526239 Qualifiers: Qualified Codes: R50.81 - Fever presenting with conditions classified elsewhere (2) Leukocytosis ICD Codes: D72.829 - Elevated white blood cell count, unspecified SNOMED: 003736785, 101448872 Qualifiers: Qualified Codes: D72.825 - Bandemia (3) Abdominal pain ICD Codes: R10.9 - Unspecified abdominal pain SNOMED: 57115612, 302222537 Qualifiers: Qualified Codes: R10.13 - Epigastric pain Assessment/Plan ivf antiemetics as needed po flagyl advance diet dc planning today depending on pain/diarrhea Subjective ROS Limited/Unobtainable: No Constitutional: Reports: malaise, weakness HEENT: Reports: no symptoms Cardiovascular: Reports: no symptoms Respiratory: Reports: no symptoms Gastrointestinal/Abdominal: Reports: abdominal pain, diarrhea Genitourinary: Reports: no symptoms Neurologic/Psychiatric: Reports: no symptoms Endocrine: Reports: no symptoms Hematologic/Lymphatic: Reports: no symptoms Allergies: Coded Allergies: No Known Allergies (Unverified , 07/05/16) All Systems: reviewed and negative except above Subjective diarrhea is less. still c/o moderate to severe abd pain. cdiff +. on po flagyl Objective Last 24 Hour Vital Signs Date Time Temp Pulse Resp B/P Pulse Ox O2 Delivery O2 Flow Rate FiO2 07/08/16 05:27 97.9 07/08/16 03:45 97.9 75 18 112/69 96 Room Air 07/08/16 00:00 97.7 76 18 114/68 95 Room Air 07/07/16 20:00 97.9 85 22 132/78 93 Room Air 07/07/16 16:00 98.2 87 22 135/82 96 Room Air 07/07/16 12:28 98.2 89 17 127/67 98 Room Air Intake and Output 07/07/16 07/08/16 19:00 07:00 Intake Total 810.0 ml 580 ml Balance 810.0 ml 580 ml Intake Oral 500 ml 580 ml IV Total 310.0 ml # Voids 3 4 # Bowel Movements 1 1 Height (Feet): 5 Height (Inches): 4.00 Weight (Pounds): 130 Objective General Appearance: WD/WN, alert Neck: normal alignment, supple, normal inspection Cardiovascular: normal rate Respiratory/Chest: chest wall non-tender, lungs clear Abdomen: normal bowel sounds, non tender, soft, no organomegaly, no mass Edema: no edema noted Arm (L), no edema noted Arm (R), no edema noted Leg (L), no edema noted Leg (R), no edema noted Pedal (L), no edema noted Pedal (R), no edema noted 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
[2016-07-08 08:34] VITALS: BP 122/77
[2016-07-08] MEDS: Heparin 5000 units/ml inj SUBQ SCH ×2 (10:06→21:45)
--- NOTE | 2016-07-08 10:32 | Infectious Diseases Prog Note ---
Assessment/Plan Assessment/Plan A 1. c.difficile colitis 2. fever resolved 3. anemia 4. hepatic cysts P 1. continue Flagyl 11 more days Subjective ROS Limited/Unobtainable: No Constitutional: Reports: no symptoms Respiratory: Reports: no symptoms Gastrointestinal/Abdominal: Reports: nausea Genitourinary: Reports: no symptoms Allergies: Coded Allergies: No Known Allergies (Unverified , 07/05/16) Objective Vital Signs Last 24 Hour Vital Signs Date Time Temp Pulse Resp B/P Pulse Ox O2 Delivery O2 Flow Rate FiO2 07/08/16 08:34 97.3 78 20 122/77 95 Room Air 07/08/16 05:27 97.9 07/08/16 03:45 97.9 75 18 112/69 96 Room Air 07/08/16 00:00 97.7 76 18 114/68 95 Room Air 07/07/16 20:00 97.9 85 22 132/78 93 Room Air 07/07/16 16:00 98.2 87 22 135/82 96 Room Air 07/07/16 12:28 98.2 89 17 127/67 98 Room Air Height (Feet): 5 Height (Inches): 4.00 Weight (Pounds): 130 General Appearance: no acute distress HEENT: mucous membranes moist Respiratory/Chest: lungs clear Cardiovascular: normal rate Abdomen: soft, non tender Extremities: no edema Neurologic/Psychiatric: alert, oriented x 3, responsive Microbiology Date/Time Source Procedure Growth Status 07/05/16 16:40 Blood Blood Culture - Preliminary NO GROWTH AFTER 48 HOURS Resulted 07/05/16 16:25 Blood Blood Culture - Preliminary NO GROWTH AFTER 48 HOURS Resulted 07/06/16 17:03 Stool Stool Culture - Preliminary NORMAL FECAL NATASHA. Resulted 07/06/16 17:03 Stool Clostridium difficile Toxin Assay - Final Resulted 07/06/16 17:03 Urine,Clean Catch Urine Culture - Preliminary NO GROWTH AFTER 24 HOURS Resulted Current Medications Medications (Trade) Dose Ordered Sig/Ibis Route PRN Reason Start Time Stop Time Status Last Admin Dose Admin Acetaminophen (Tylenol) 650 mg Q4H PRN ORAL Mild Pain/Temp > 100.5 07/06/16 01:30 08/05/16 01:29 Dextrose (Dextrose 50%) STAT PRN IV Hypoglycemia 07/06/16 01:30 08/05/16 01:29 Heparin Sodium (Porcine) (Heparin 5000 units/ml) 5,000 units EVERY 12 HOURS SUBQ 07/06/16 09:00 08/05/16 08:59 07/08/16 10:06 Hydromorphone HCl 1 mg 1 mg Q4H PRN IVP Severe Pain (Pain Scale 7-10) 07/07/16 12:30 07/14/16 12:29 07/08/16 10:02 Metronidazole (Flagyl) 500 mg Q8HR ORAL 07/07/16 14:00 07/14/16 13:59 07/08/16 05:44 Ondansetron HCl (Zofran) 4 mg Q4H PRN IVP Nausea & Vomiting 07/06/16 01:30 08/05/16 01:29 07/08/16 10:02 Potassium Chloride/Dextrose/ Sodium Chloride (KCl/D5ns) 1,015 ml @ 100 mls/hr Q10H9M IV 07/07/16 13:30 08/06/16 13:29 07/08/16 10:00 GLENIS SALES Jul 08, 2016 10:32
[2016-07-08 11:45] VITALS: BP 124/78
[2016-07-08 16:00] VITALS: BP 126/71
[2016-07-08 20:00] VITALS: BP 132/76
--- NOTE | 2016-07-08 23:20 | General Progress Note ---
Assessment/Plan Assessment/Plan Assessment - C Diff (+) - Diarrhea - abd pain - anemia Recommendations - Flagyl x 10 days - Outpt EGD/Colon Subjective Allergies: Coded Allergies: No Known Allergies (Unverified , 07/05/16) Subjective too much pain and diarrhea to go home today C Diff (+) Objective Last 24 Hour Vital Signs Date Time Temp Pulse Resp B/P Pulse Ox O2 Delivery O2 Flow Rate FiO2 07/08/16 20:00 97.5 83 20 132/76 95 Room Air 07/08/16 16:00 97.5 78 18 126/71 97 Room Air 07/08/16 15:15 98.8 07/08/16 11:45 98.8 73 20 124/78 96 Room Air 07/08/16 08:34 97.3 78 20 122/77 95 Room Air 07/08/16 03:45 97.9 75 18 112/69 96 Room Air 07/08/16 00:00 97.7 76 18 114/68 95 Room Air Intake and Output 07/07/16 07/08/16 19:00 07:00 Intake Total 810.0 ml 680 ml Balance 810.0 ml 680 ml Intake Oral 500 ml 580 ml IV Total 310.0 ml 100 ml # Voids 3 4 # Bowel Movements 1 1 Height (Feet): 5 Height (Inches): 4.00 Weight (Pounds): 130 Objective Thin woman NCAT supple CTA RRR Soft ND NT no edema OLEG RANDALL Jul 08, 2016 23:20
[2016-07-09] VITALS (7 sets, daily range): BP systolic 126–169; BP diastolic 61–107
[2016-07-09] MEDS: HYDROmorphone 1mg/ml Carpuject IVP PRN ×3 (00:06→15:45)
[2016-07-09] MEDS: metroNIDAZOLE 500mg tab ORAL SCH ×3 (05:41→13:20)
--- NOTE | 2016-07-09 07:51 | General Progress Note ---
Assessment/Plan Problem List: (1) Fever ICD Codes: R50.9 - Fever, unspecified SNOMED: 822462587 Qualifiers: Qualified Codes: R50.81 - Fever presenting with conditions classified elsewhere (2) Leukocytosis ICD Codes: D72.829 - Elevated white blood cell count, unspecified SNOMED: 403170907, 915051900 Qualifiers: Qualified Codes: D72.825 - Bandemia (3) Abdominal pain ICD Codes: R10.9 - Unspecified abdominal pain SNOMED: 51059003, 798930480 Qualifiers: Qualified Codes: R10.13 - Epigastric pain Status: not improved Assessment/Plan ivf antiemetics added po flagyl CT abd- d/o toxic megacolon iv pain rx not ready for dc dc planning today depending on pain/diarrhea Subjective ROS Limited/Unobtainable: No Constitutional: Reports: malaise, weakness HEENT: Reports: no symptoms Cardiovascular: Reports: no symptoms Respiratory: Reports: no symptoms Gastrointestinal/Abdominal: Reports: abdominal pain, nausea, vomiting Genitourinary: Reports: no symptoms Neurologic/Psychiatric: Reports: no symptoms Endocrine: Reports: no symptoms Hematologic/Lymphatic: Reports: no symptoms Allergies: Coded Allergies: No Known Allergies (Unverified , 07/05/16) All Systems: reviewed and negative except above Subjective diarrhea is less. still c/o moderate to severe abd pain. now with more nausea and vomiting. abd more distended. Objective Last 24 Hour Vital Signs Date Time Temp Pulse Resp B/P Pulse Ox O2 Delivery O2 Flow Rate FiO2 07/09/16 05:44 97.9 83 19 144/86 95 Room Air 07/09/16 04:12 97.5 07/09/16 00:48 132/78 07/09/16 00:00 97.4 93 20 145/100 95 Room Air 07/08/16 20:00 97.5 83 20 132/76 95 Room Air 07/08/16 16:00 97.5 78 18 126/71 97 Room Air 07/08/16 11:45 98.8 73 20 124/78 96 Room Air 07/08/16 08:34 97.3 78 20 122/77 95 Room Air Intake and Output 07/08/16 07/09/16 19:00 07:00 Intake Total 1320 ml 1240 ml Balance 1320 ml 1240 ml Intake Oral 120 ml 240 ml IV Total 1200 ml 1000 ml # Voids 2 4 # Bowel Movements 2 Height (Feet): 5 Height (Inches): 4.00 Weight (Pounds): 130 Objective General Appearance: WD/WN, alert Neck: normal alignment, supple, normal inspection Cardiovascular: normal rate Respiratory/Chest: chest wall non-tender, lungs clear Abdomen: normal bowel sounds, non tender, soft, no organomegaly, no mass Edema: no edema noted Arm (L), no edema noted Arm (R), no edema noted Leg (L), no edema noted Leg (R), no edema noted Pedal (L), no edema noted Pedal (R), no edema noted 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
[2016-07-09] MEDS: Metoclopramide 10mg/2ml Inj IVP PRN ×2 (08:12→16:44)
[2016-07-09] MEDS: Norco 10mg/325mg tab ORAL PRN ×2 (08:12→12:39)
[2016-07-09] MEDS: Heparin 5000 units/ml inj SUBQ SCH ×2 (08:17→20:01)
--- NOTE | 2016-07-09 10:48 | Infectious Diseases Prog Note ---
Assessment/Plan Assessment/Plan A 1. c.difficile colitis 2. fever resolved 3. anemia 4. hepatic cysts P 1. continue Flagyl 10 more days 2. will f/u Ct scan of abdomen & pelvis Subjective ROS Limited/Unobtainable: No Constitutional: Reports: no symptoms Respiratory: Reports: no symptoms Cardiovascular: Reports: no symptoms Gastrointestinal/Abdominal: Reports: diarrhea Genitourinary: Reports: no symptoms Allergies: Coded Allergies: No Known Allergies (Unverified , 07/05/16) Objective Vital Signs Last 24 Hour Vital Signs Date Time Temp Pulse Resp B/P Pulse Ox O2 Delivery O2 Flow Rate FiO2 07/09/16 09:11 97.9 07/09/16 08:17 97.9 85 20 154/107 96 Room Air 07/09/16 05:44 97.9 83 19 144/86 95 Room Air 07/09/16 04:12 97.5 07/09/16 00:48 132/78 07/09/16 00:00 97.4 93 20 145/100 95 Room Air 07/08/16 20:00 97.5 83 20 132/76 95 Room Air 07/08/16 16:00 97.5 78 18 126/71 97 Room Air 07/08/16 11:45 98.8 73 20 124/78 96 Room Air Height (Feet): 5 Height (Inches): 4.00 Weight (Pounds): 130 HEENT: mucous membranes moist Cardiovascular: normal rate Abdomen: soft, non tender Extremities: no edema Neurologic/Psychiatric: alert, oriented x 3, responsive Microbiology Date/Time Source Procedure Growth Status 07/06/16 17:03 Stool Stool Culture - Preliminary Resulted 07/06/16 17:03 Stool Clostridium difficile Toxin Assay - Final Resulted 07/06/16 17:03 Urine,Clean Catch Urine Culture - Preliminary NO GROWTH AFTER 24 HOURS Resulted Current Medications Medications (Trade) Dose Ordered Sig/Ibis Route PRN Reason Start Time Stop Time Status Last Admin Dose Admin Acetaminophen (Tylenol) 650 mg Q4H PRN ORAL Mild Pain/Temp > 100.5 07/06/16 01:30 08/05/16 01:29 Acetaminophen/ Hydrocodone Bitart ([place] 10/325) 1 ea Q4H PRN ORAL For Severe Pain 07/09/16 06:45 07/16/16 06:44 07/09/16 08:12 Dextrose (Dextrose 50%) STAT PRN IV Hypoglycemia 07/06/16 01:30 08/05/16 01:29 Heparin Sodium (Porcine) (Heparin 5000 units/ml) 5,000 units EVERY 12 HOURS SUBQ 07/06/16 09:00 08/05/16 08:59 07/09/16 08:17 Hydromorphone HCl 1 mg 1 mg Q4H PRN IVP Severe Pain (Pain Scale 7-10) 07/07/16 12:30 07/14/16 12:29 07/09/16 03:38 Metoclopramide HCl (Reglan) 10 mg Q8H PRN IVP Nausea & Vomiting 07/09/16 06:45 08/08/16 06:44 07/09/16 08:12 Metronidazole (Flagyl) 500 mg Q8HR ORAL 07/07/16 14:00 07/14/16 13:59 07/09/16 06:30 Ondansetron HCl (Zofran) 4 mg Q4H PRN IVP Nausea & Vomiting 07/06/16 01:30 08/05/16 01:29 07/09/16 03:38 Potassium Chloride/Dextrose/ Sodium Chloride (KCl/D5ns) 1,015 ml @ 100 mls/hr Q10H9M IV 07/07/16 13:30 08/06/16 13:29 07/09/16 05:43 GLENIS SALES Jul 09, 2016 10:48
--- NOTE | 2016-07-09 11:19 | General Progress Note ---
Assessment/Plan Assessment/Plan Assessment - C Diff (+) - Diarrhea - abd pain - anemia Recommendations - Flagyl x 10 days - await CT scan - Outpt EGD/Colon Subjective Allergies: Coded Allergies: No Known Allergies (Unverified , 07/05/16) Subjective too much pain and nausea C Diff (+) getting CT scan Objective Last 24 Hour Vital Signs Date Time Temp Pulse Resp B/P Pulse Ox O2 Delivery O2 Flow Rate FiO2 07/09/16 09:11 97.9 07/09/16 08:17 97.9 85 20 154/107 96 Room Air 07/09/16 05:44 97.9 83 19 144/86 95 Room Air 07/09/16 04:12 97.5 07/09/16 00:48 132/78 07/09/16 00:00 97.4 93 20 145/100 95 Room Air 07/08/16 20:00 97.5 83 20 132/76 95 Room Air 07/08/16 16:00 97.5 78 18 126/71 97 Room Air 07/08/16 11:45 98.8 73 20 124/78 96 Room Air Intake and Output 07/08/16 07/09/16 19:00 07:00 Intake Total 1320 ml 1240 ml Balance 1320 ml 1240 ml Intake Oral 120 ml 240 ml IV Total 1200 ml 1000 ml # Voids 2 4 # Bowel Movements 2 Height (Feet): 5 Height (Inches): 4.00 Weight (Pounds): 130 Objective Thin woman NCAT supple CTA RRR Soft ND (+) TTP no edema OLEG RANDALL Jul 09, 2016 11:19
[2016-07-09 12:25] LABS: ALANINE AMINOTRANSFERASE 5 U/L (3-33); ALBUMIN/GLOBULIN RATIO 0.8 (1.0-2.7); AMYLASE 36 U/L (10-110); ANION GAP 13 (5-15); ASPARTATE AMINO TRANSFERASE 15 U/L (5-40); CALCIUM 8.5 mg/dL (8.6-10.2); CARBON DIOXIDE 21 mEQ/L (20-30); CHLORIDE 106 mEQ/L (98-107); CREATININE 2.4 mg/dL (0.5-0.9); HEMOLYSIS 2; POTASSIUM 4.4 mEQ/L (3.4-4.9); SODIUM 140 mEQ/L (135-145); TOTAL PROTEIN 5.8 g/dL (6.6-8.7)
[2016-07-09] MEDS: Vancomycin oral 125mg/2.5ml ORAL SCH ×2 (18:14→23:44)
[2016-07-10] VITALS (10 sets, daily range): BP systolic 147–165; BP diastolic 82–100
[2016-07-10] MEDS: Metoclopramide 10mg/2ml Inj IVP PRN (02:44)
[2016-07-10] MEDS: Vancomycin oral 125mg/2.5ml ORAL SCH ×3 (06:50→17:40)
[2016-07-10 06:55] LABS: BASOPHILS % (AUTO) 0.3 % (0.0-2.0); EOSINOPHILS % (AUTO) 0.3 % (0.0-3.0); LYMPHOCYTES % (AUTO) 8.8 % (20.0-45.0); MEAN CORPUSCULAR HEMOGLOBIN 26.9 PG (27.0-31.0); MEAN CORPUSCULAR HGB CONC 31.7 G/DL (32.0-36.0); MEAN CORPUSCULAR VOLUME 85 FL (80-99); MEAN PLATELET VOLUME 6.4 FL (6.5-10.1); NEUTROPHILS % (AUTO) 83.7 % (45.0-75.0); PLATELET COUNT 263 K/UL (150-450); RED BLOOD COUNT 3.87 M/UL (4.20-5.40); WHITE BLOOD COUNT 12.5 K/UL (4.8-10.8)
--- NOTE | 2016-07-10 08:18 | General Progress Note ---
Assessment/Plan Assessment/Plan Assessment - C Diff (+) - on Rx - Diarrhea - better - abd pain - still persists, ? etiology - acute Azotemia - suspect volume depletion, r/o sepsis - anemia Recommendations - increase IVF - EGD today - recheck labs - PPI - continue Rx C Diff - Renal U/S and PVR Subjective Allergies: Coded Allergies: No Known Allergies (Unverified , 07/05/16) Subjective C/o epigastric pain poor po Cr from yesterday up to 2.4 I was not notified states she wants an EGD says 10 years ago had EGD and they were unable to do it due to "narrow esophagus " Objective Last 24 Hour Vital Signs Date Time Temp Pulse Resp B/P Pulse Ox O2 Delivery O2 Flow Rate FiO2 07/10/16 00:26 98.1 07/10/16 00:00 98.1 88 20 158/82 93 Room Air 07/09/16 20:00 98.2 100 22 169/96 93 Room Air 07/09/16 16:07 98.2 82 22 146/61 96 Room Air 07/09/16 13:38 98.1 07/09/16 11:53 98.1 74 20 126/73 96 Room Air 07/09/16 08:17 97.9 85 20 154/107 96 Room Air Intake and Output 07/09/16 07/10/16 19:00 07:00 Intake Total 820 ml 1395 ml Balance 820 ml 1395 ml Intake Oral 120 ml 895 ml IV Total 700 ml 500 ml # Voids 2 4 Laboratory Tests 07/09/16 11:50: Sodium Level 140, Potassium Level 4.4, Chloride Level 106, Carbon Dioxide Level 21, Anion Gap 13, Blood Urea Nitrogen 13, Creatinine 2.4H, Estimat Glomerular Filtration Rate 20.0, Glucose Level 163H, Calcium Level 8.5L, Total Bilirubin < 0.2, Aspartate Amino Transf (AST/SGOT) 15, Alanine Aminotransferase (ALT/SGPT) 5 , Alkaline Phosphatase 68, Total Protein 5.8L, Albumin 2.6L, Globulin 3.2, Albumin/Globulin Ratio 0.8L, Amylase Level 36 07/10/16 06:15: White Blood Count 12.5H, Red Blood Count 3.87L, Hemoglobin 10.4L, Hematocrit 32.9L, Mean Corpuscular Volume 85, Mean Corpuscular Hemoglobin 26.9L, Mean Corpuscular Hemoglobin Concent 31.7L, Red Cell Distribution Width 12.0, Platelet Count 263, Mean Platelet Volume 6.4L, Neutrophils (%) (Auto) 83.7H, Lymphocytes (%) (Auto) 8.8L, Monocytes (%) (Auto) 7.0, Eosinophils (%) (Auto) 0.3, Basophils (%) (Auto) 0.3 Height (Feet): 5 Height (Inches): 4.00 Weight (Pounds): 130 Objective Thin woman NCAT (+) dry MM supple CTA RRR Soft ND (+) TTP epigastric w/o G/RB no edema OLEG RANDALL Jul 10, 2016 08:17
[2016-07-10 08:53] LABS: ALANINE AMINOTRANSFERASE 9 U/L (3-33); ALBUMIN/GLOBULIN RATIO 0.7 (1.0-2.7); ANION GAP 17 (5-15); ASPARTATE AMINO TRANSFERASE 30 U/L (5-40); CALCIUM 8.3 mg/dL (8.6-10.2); CARBON DIOXIDE 19 mEQ/L (20-30); CHLORIDE 106 mEQ/L (98-107); CREATININE 2.3 mg/dL (0.5-0.9); HEMOLYSIS 5; POTASSIUM 4.8 mEQ/L (3.4-4.9); SODIUM 142 mEQ/L (135-145)
[2016-07-10] MEDS: Heparin 5000 units/ml inj SUBQ SCH ×2 (09:00→20:21)
--- NOTE | 2016-07-10 09:55 | General Progress Note ---
Assessment/Plan Problem List: (1) Fever ICD Codes: R50.9 - Fever, unspecified SNOMED: 732441211 Qualifiers: Qualified Codes: R50.81 - Fever presenting with conditions classified elsewhere (2) Leukocytosis ICD Codes: D72.829 - Elevated white blood cell count, unspecified SNOMED: 307221633, 209670710 Qualifiers: Qualified Codes: D72.825 - Bandemia (3) Abdominal pain ICD Codes: R10.9 - Unspecified abdominal pain SNOMED: 82839120, [id number] Qualifiers: Qualified Codes: R10.13 - Epigastric pain Assessment/Plan ivf antiemetics added po vanco repat ct abd w/o change iv pain rx not ready for dc renal eval called suspect contrast induced nephropathy dc planning today depending on pain/diarrhea Subjective ROS Limited/Unobtainable: No Constitutional: Reports: malaise, weakness HEENT: Reports: no symptoms Cardiovascular: Reports: no symptoms Respiratory: Reports: no symptoms Gastrointestinal/Abdominal: Reports: abdominal pain, nausea, poor appetite Genitourinary: Reports: no symptoms Neurologic/Psychiatric: Reports: no symptoms Endocrine: Reports: no symptoms Hematologic/Lymphatic: Reports: no symptoms Allergies: Coded Allergies: No Known Allergies (Unverified , 07/05/16) All Systems: reviewed and negative except above Subjective diarrhea is less. still c/o moderate to severe abd pain. now with more nausea and vomiting. abd more distended. minimal po intake. renal fxn worse. npo for egd Objective Last 24 Hour Vital Signs Date Time Temp Pulse Resp B/P Pulse Ox O2 Delivery O2 Flow Rate FiO2 07/10/16 08:30 98.2 97 20 156/87 96 Room Air 07/10/16 00:26 98.1 07/10/16 00:00 98.1 88 20 158/82 93 Room Air 07/09/16 20:00 98.2 100 22 169/96 93 Room Air 07/09/16 16:07 98.2 82 22 146/61 96 Room Air 07/09/16 13:38 98.1 07/09/16 11:53 98.1 74 20 126/73 96 Room Air Intake and Output 07/09/16 07/10/16 19:00 07:00 Intake Total 820 ml 1395 ml Balance 820 ml 1395 ml Intake Oral 120 ml 895 ml IV Total 700 ml 500 ml # Voids 2 4 Laboratory Tests 07/09/16 11:50: Sodium Level 140, Potassium Level 4.4, Chloride Level 106, Carbon Dioxide Level 21, Anion Gap 13, Blood Urea Nitrogen 13, Creatinine 2.4H, Estimat Glomerular Filtration Rate 20.0, Glucose Level 163H, Calcium Level 8.5L, Total Bilirubin < 0.2, Aspartate Amino Transf (AST/SGOT) 15, Alanine Aminotransferase (ALT/SGPT) 5 , Alkaline Phosphatase 68, Total Protein 5.8L, Albumin 2.6L, Globulin 3.2, Albumin/Globulin Ratio 0.8L, Amylase Level 36 07/10/16 06:15: Sodium Level 142, Potassium Level 4.8, Chloride Level 106, Carbon Dioxide Level 19L, Anion Gap 17H, Blood Urea Nitrogen 12, Creatinine 2.3H, Estimat Glomerular Filtration Rate 21.0, Glucose Level 197H, Calcium Level 8.3L, Total Bilirubin < 0.2, Aspartate Amino Transf (AST/SGOT) 30, Alanine Aminotransferase (ALT/SGPT) 9 , Alkaline Phosphatase 74, Total Protein 6.0L, Albumin 2.6L, Globulin 3.4, Albumin/Globulin Ratio 0.7L, White Blood Count 12.5H, Red Blood Count 3.87L, Hemoglobin 10.4L, Hematocrit 32.9L, Mean Corpuscular Volume 85, Mean Corpuscular Hemoglobin 26.9L, Mean Corpuscular Hemoglobin Concent 31.7L, Red Cell Distribution Width 12.0, Platelet Count 263, Mean Platelet Volume 6.4L, Neutrophils (%) (Auto) 83.7H, Lymphocytes (%) (Auto) 8.8L, Monocytes (%) (Auto) 7.0, Eosinophils (%) (Auto) 0.3, Basophils (%) (Auto) 0.3 Height (Feet): 5 Height (Inches): 4.00 Weight (Pounds): 130 Objective General Appearance: WD/WN, alert Neck: normal alignment, supple, normal inspection Cardiovascular: normal rate Respiratory/Chest: chest wall non-tender, lungs clear Abdomen: normal bowel sounds, non tender, soft, no organomegaly, no mass Edema: no edema noted Arm (L), no edema noted Arm (R), no edema noted Leg (L), no edema noted Leg (R), no edema noted Pedal (L), no edema noted Pedal (R), no edema noted Generalized 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
[2016-07-10 10:37] LABS: BASOPHILS % (AUTO) 0.2 % (0.0-2.0); EOSINOPHILS % (AUTO) 0.2 % (0.0-3.0); LYMPHOCYTES % (AUTO) 8.6 % (20.0-45.0); MEAN CORPUSCULAR HEMOGLOBIN 26.9 PG (27.0-31.0); MEAN CORPUSCULAR HGB CONC 31.6 G/DL (32.0-36.0); MEAN CORPUSCULAR VOLUME 85 FL (80-99); MEAN PLATELET VOLUME 6.6 FL (6.5-10.1); MONOCYTES % (AUTO) 7.2 % (1.0-10.0); NEUTROPHILS % (AUTO) 83.7 % (45.0-75.0); PLATELET COUNT 263 K/UL (150-450); RED CELL DISTRIBUTION WIDTH 11.9 % (11.6-14.8); WHITE BLOOD COUNT 12.2 K/UL (4.8-10.8)
[2016-07-10] MEDS: Pantoprazole Inj IVP SCH ×2 (10:55→20:20)
--- NOTE | 2016-07-10 11:51 | Infectious Diseases Prog Note ---
Assessment/Plan Assessment/Plan antibiotics : vancomycin po A 1. c.diff colitis 2. fever improving P 1. continue po vancomycin 12 more days 2. will follow up cultures Subjective Constitutional: Denies: chills, fever Respiratory: Denies: dry cough, shortness of breath Gastrointestinal/Abdominal: Reports: diarrhea, nausea, Denies: vomiting Musculoskeletal: Reports: pain - abdominal Allergies: Coded Allergies: No Known Allergies (Unverified , 07/05/16) Objective Vital Signs Last 24 Hour Vital Signs Date Time Temp Pulse Resp B/P Pulse Ox O2 Delivery O2 Flow Rate FiO2 07/10/16 08:30 98.2 97 20 156/87 96 Room Air 07/10/16 00:26 98.1 07/10/16 00:00 98.1 88 20 158/82 93 Room Air 07/09/16 20:00 98.2 100 22 169/96 93 Room Air 07/09/16 16:07 98.2 82 22 146/61 96 Room Air 07/09/16 13:38 98.1 07/09/16 11:53 98.1 74 20 126/73 96 Room Air Height (Feet): 5 Height (Inches): 4.00 Weight (Pounds): 130 Cardiovascular: normal rate, regular rhythm, no gallop/murmur Abdomen: tender - epigastric area Extremities: no edema Laboratory Tests Test 07/10/16 06:15 07/10/16 10:15 White Blood Count 12.5 K/UL (4.8-10.8) H 12.2 K/UL (4.8-10.8) H Red Blood Count 3.87 M/UL (4.20-5.40) L 3.80 M/UL (4.20-5.40) L Hemoglobin 10.4 G/DL (12.0-16.0) L 10.2 G/DL (12.0-16.0) L Hematocrit 32.9 % (37.0-47.0) L 32.3 % (37.0-47.0) L Mean Corpuscular Volume 85 FL (80-99) 85 FL (80-99) Mean Corpuscular Hemoglobin 26.9 PG (27.0-31.0) L 26.9 PG (27.0-31.0) L Mean Corpuscular Hemoglobin Concent 31.7 G/DL (32.0-36.0) L 31.6 G/DL (32.0-36.0) L Red Cell Distribution Width 12.0 % (11.6-14.8) 11.9 % (11.6-14.8) Platelet Count 263 K/UL (150-450) 263 K/UL (150-450) Mean Platelet Volume 6.4 FL (6.5-10.1) L 6.6 FL (6.5-10.1) Neutrophils (%) (Auto) 83.7 % (45.0-75.0) H 83.7 % (45.0-75.0) H Lymphocytes (%) (Auto) 8.8 % (20.0-45.0) L 8.6 % (20.0-45.0) L Monocytes (%) (Auto) 7.0 % (1.0-10.0) 7.2 % (1.0-10.0) Eosinophils (%) (Auto) 0.3 % (0.0-3.0) 0.2 % (0.0-3.0) Basophils (%) (Auto) 0.3 % (0.0-2.0) 0.2 % (0.0-2.0) Sodium Level 142 mEQ/L (135-145) Potassium Level 4.8 mEQ/L (3.4-4.9) Chloride Level 106 mEQ/L (98-107) Carbon Dioxide Level 19 mEQ/L (20-30) L Anion Gap 17 (5-15) H Blood Urea Nitrogen 12 mg/dL (7-23) Creatinine 2.3 mg/dL (0.5-0.9) H Estimat Glomerular Filtration Rate 21.0 mL/min (>60) Glucose Level 197 mg/dL (74-106) H Calcium Level 8.3 mg/dL (8.6-10.2) L Total Bilirubin < 0.2 mg/dL (0.0-1.2) Aspartate Amino Transf (AST/SGOT) 30 U/L (5-40) Alanine Aminotransferase (ALT/SGPT) 9 U/L (3-33) Alkaline Phosphatase 74 U/L (35-104) Total Protein 6.0 g/dL (6.6-8.7) L Albumin 2.6 g/dL (3.5-5.2) L Globulin 3.4 g/dL Albumin/Globulin Ratio 0.7 (1.0-2.7) L Current Medications Medications (Trade) Dose Ordered Sig/Ibis Route PRN Reason Start Time Stop Time Status Last Admin Dose Admin Acetaminophen (Tylenol) 650 mg Q4H PRN ORAL Mild Pain/Temp > 100.5 07/06/16 01:30 08/05/16 01:29 Acetaminophen/ Hydrocodone Bitart ([place] 10/325) 1 ea Q4H PRN ORAL For Severe Pain 07/09/16 06:45 07/16/16 06:44 07/09/16 12:39 Dextrose (Dextrose 50%) STAT PRN IV Hypoglycemia 07/06/16 01:30 08/05/16 01:29 Heparin Sodium (Porcine) (Heparin 5000 units/ml) 5,000 units EVERY 12 HOURS SUBQ 07/06/16 09:00 08/05/16 08:59 07/09/16 20:01 Hydromorphone HCl (Dilaudid) 2 mg Q3HR PRN IVP Severe Pain (Pain Scale 7-10) 07/09/16 18:00 07/16/16 17:59 07/10/16 11:46 Metoclopramide HCl (Reglan) 10 mg Q8H PRN IVP Nausea & Vomiting 07/09/16 06:45 08/08/16 06:44 07/10/16 02:44 Ondansetron HCl (Zofran) 4 mg Q4H PRN IVP Nausea & Vomiting 07/06/16 01:30 08/05/16 01:29 07/09/16 21:40 Pantoprazole 40 mg 40 mg EVERY 12 HOURS IVP 07/10/16 09:30 08/09/16 09:29 07/10/16 10:55 Sodium Chloride (Sodium Chloride 1000ml bag) 1,000 ml @ 125 mls/hr Q8H IV 07/10/16 11:00 08/09/16 10:59 07/10/16 11:44 Vancomycin HCl (Vancomycin) 250 mg Q6HR ORAL 07/09/16 18:00 07/16/16 17:59 07/10/16 06:50 SINAN AYOUB Jul 10, 2016 11:51
[2016-07-10] MEDS ORDERED: Propofol 10mg/ml 20ml IV ONE (13:00)
[2016-07-10] MEDS ORDERED: NS 550ML IV ONE (13:00)
--- NOTE | 2016-07-10 13:06 | Pre-Procedure Note/Attestation ---
Pre-Procedure Note/Attestation Complete Prior to Procedure Planned Procedure: not applicable Procedure Narrative: egd Indications for Procedure Pre-Operative Diagnosis: abd pain Attestation I attest that I discussed the nature of the procedure; its benefits; risks and complications; and alternatives (and the risks and benefits of such alternatives ), prior to the procedure, with the patient (or the patient's legal sales support representative). I attest that, if there was a reasonable possibility of needing a blood transfusion, the patient (or the patient's legal sales support representative) was given the [facility] standardized written summary, pursuant to the Moris Lizette Blood Safety Act ([place] Health and Safety Code # 1645, as amended). I attest that I re-evaluated the patient just prior to the surgery and that there has been no change in the patient's H&P, except as documented below: MARY HARRIS Jul 10, 2016 13:06
--- NOTE | 2016-07-10 13:16 | Endoscopy Procedure Note ---
Endoscopy Procedure Note Indication for Procedure: abd pain Procedures Performed: EGD Operative Findings/Diagnosis: gastritis Specimen: yes Pt Tolerated Procedure Well: Yes Estimated Blood Loss: none Anesthesiologist: josé miguel Anesthesia: MAC Implant(s) used?: No 50 yrs or older w/o bx or poly: Not Applicable 10yrs. F/U not recommended: Not Applicable MARY HARRIS Jul 10, 2016 13:16
--- NOTE | 2016-07-10 13:21 | Immediate Post-Op Evaluation ---
Immediate Post-Op Evalulation Immediate Post-Op Evalulation Date of Evaluation: Jul 10, 2016 Time of Evaluation: 13:35 IV Fluids: 300 Blood Pressure Systolic: 165 Blood Pressure Diastolic: 92 Pulse Rate: 90 Respiratory Rate: 19 O2 Sat by Pulse Oximetry: 99 Temperature (Fahrenheit): 98.7 Pain Score (1-10): 0 Nausea: No Vomiting: No Complications none Patient Status: awake, patent, none Hydration Status: adequate Enrique Samayoa MD Jul 10, 2016 13:21
--- NOTE | 2016-07-10 13:21 | Anethesia Preoperative Eval ---
Anesthesia Pre-op PMH/ROS General Date of Evaluation: Jul 10, 2016 Time of Evaluation: 13:04 Anesthesiologist: josé miguel ASA Score: ASA 2 Mallampati Score Class I : Soft palate, uvula, fauces, pillars visible Class II: Soft palate, uvula, fauces visible Class III: Soft palate, base of uvula visible Class IV: Only hard plate visible Mallampati Classification: Class II Surgeon: ja Diagnosis: abdominal pain Surgical Procedure: egd Anesthesia History: none Allergies: Coded Allergies: No Known Allergies (Unverified , 07/05/16) Anesthesia Pre-op Phys. Exam Physician Exam Last Vital Signs Date Time Temp Pulse Resp B/P Pulse Ox O2 Delivery O2 Flow Rate FiO2 07/10/16 12:07 98.1 100 20 150/100 92 Room Air Airway Exam Mallampati Score: Class II Teeth: intact Anesthesia Pre-op A/P Labs Hematology Test 07/10/16 06:15 07/10/16 10:15 White Blood Count 12.5 K/UL (4.8-10.8) H 12.2 K/UL (4.8-10.8) H Red Blood Count 3.87 M/UL (4.20-5.40) L 3.80 M/UL (4.20-5.40) L Hemoglobin 10.4 G/DL (12.0-16.0) L 10.2 G/DL (12.0-16.0) L Hematocrit 32.9 % (37.0-47.0) L 32.3 % (37.0-47.0) L Mean Corpuscular Volume 85 FL (80-99) 85 FL (80-99) Mean Corpuscular Hemoglobin 26.9 PG (27.0-31.0) L 26.9 PG (27.0-31.0) L Mean Corpuscular Hemoglobin Concent 31.7 G/DL (32.0-36.0) L 31.6 G/DL (32.0-36.0) L Red Cell Distribution Width 12.0 % (11.6-14.8) 11.9 % (11.6-14.8) Platelet Count 263 K/UL (150-450) 263 K/UL (150-450) Mean Platelet Volume 6.4 FL (6.5-10.1) L 6.6 FL (6.5-10.1) Neutrophils (%) (Auto) 83.7 % (45.0-75.0) H 83.7 % (45.0-75.0) H Lymphocytes (%) (Auto) 8.8 % (20.0-45.0) L 8.6 % (20.0-45.0) L Monocytes (%) (Auto) 7.0 % (1.0-10.0) 7.2 % (1.0-10.0) Eosinophils (%) (Auto) 0.3 % (0.0-3.0) 0.2 % (0.0-3.0) Basophils (%) (Auto) 0.3 % (0.0-2.0) 0.2 % (0.0-2.0) Chemistry Test 07/10/16 06:15 Sodium Level 142 mEQ/L (135-145) Potassium Level 4.8 mEQ/L (3.4-4.9) Chloride Level 106 mEQ/L (98-107) Carbon Dioxide Level 19 mEQ/L (20-30) L Anion Gap 17 (5-15) H Blood Urea Nitrogen 12 mg/dL (7-23) Creatinine 2.3 mg/dL (0.5-0.9) H Estimat Glomerular Filtration Rate 21.0 mL/min (>60) Glucose Level 197 mg/dL (74-106) H Calcium Level 8.3 mg/dL (8.6-10.2) L Total Bilirubin < 0.2 mg/dL (0.0-1.2) Aspartate Amino Transf (AST/SGOT) 30 U/L (5-40) Alanine Aminotransferase (ALT/SGPT) 9 U/L (3-33) Alkaline Phosphatase 74 U/L (35-104) Total Protein 6.0 g/dL (6.6-8.7) L Albumin 2.6 g/dL (3.5-5.2) L Globulin 3.4 g/dL Albumin/Globulin Ratio 0.7 (1.0-2.7) L Risk Assessment & Plan Plan: propofol Status Change Before Surgery: Enrique Hodges MD Jul 10, 2016 13:21
--- NOTE | 2016-07-10 13:22 | 48 Hour Post Anesthesia Eval ---
Post Anesthesia Evaluation Date of Evaluation: Jul 10, 2016 Time of Evaluation: 16:00 Blood Pressure Systolic: 153 0: 94 Pulse Rate: 88 Respiratory Rate: 20 Temperature (Fahrenheit): 98 O2 Sat by Pulse Oximetry: 96 Airway: patent Nausea: No Vomiting: No Pain Intensity: 0 Hydration Status: adequate Cardiopulmonary Status: stable Mental Status/LOC: patient returned to baseline Follow-up Care/Observations: n/a Post-Anesthesia Complications: tolerated well Follow-up care needed: N/A Enrique Samayoa MD Jul 10, 2016 13:22
[2016-07-10 15:30] LABS: APPEARANCE,URINE CLEAR; KETONES,URINE NEGATIVE (NEGATIVE); LEUKOCYTE ESTERASE ,URINE NEGATIVE (NEGATIVE); NITRITE,URINE NEGATIVE (NEGATIVE); PH,URINE 5 (4.5-8.0); PROTEIN,URINE NEGATIVE (NEGATIVE); UROBILINOGEN,URINE NORMAL MG/DL (0.0-1.0)
[2016-07-10 15:44] LABS: WBC,URINE 0-2 /HPF (0 - 2)
[2016-07-10 15:45] LABS: CREATININE, RANDOM URINE 26.5 mg/dL
[2016-07-10 15:48] LABS: SQUAMOUS EPITHELIAL CELL,UR OCCASIONAL /LPF (NONE/OCC)
[2016-07-10 15:49] LABS: BACTERIA,URINE FEW /HPF
[2016-07-10] MEDS ORDERED: Metoclopramide 10mg/2ml Inj IVP PRN (18:00)
--- NOTE | 2016-07-10 20:49 | Consultation ---
DATE OF CONSULTATION: 07/10/2016 CONSULTING PHYSICIAN: Omari Werner M.D. REFERRING PHYSICIAN: Jesus Whitney M.D. REASON FOR CONSULTATION: Acute kidney injury. HISTORY OF PRESENT ILLNESS: The patient is a 71-year-old lady who presents with abdominal pain. She has had a rise in her creatinine since admission. She had a CT with contrast showing hepatic cyst, normal kidneys, and no other specific abnormality and renal ultrasound was negative. Urine output is not recorded, but she has had been receiving intravenous fluids. She states she is voiding well and going to the toilet. There is no prior history of kidney disease, diabetes, hypertension, or any systemic disease. PAST SURGICAL HISTORY: Appendectomy. HABITS: She is a nondrinker and nonsmoker. SYSTEM REVIEW: HEAD, EYES, EARS, NOSE, AND THROAT: Vision and hearing is good. ENDOCRINE: No known diabetes or thyroid disease. PULMONARY: No asthma, TB, or chronic cough. CARDIAC: No angina or [place]. GASTROINTESTINAL: Complains of nausea, weakness, and abdominal pain. No severe diarrhea. MUSCULOSKELETAL: No deformed joints. PHYSICAL EXAMINATION: GENERAL: The patient is alert, thin lady, in no acute distress. VITAL SIGNS: Pulse 91, respirations 18, blood pressure 148/90, pulse oximetry 99, and temperature 98.4 degrees. HEENT: Head, eyes, ears, nose, and throat, oral mucosa is moist. Sclerae are nonicteric. Ocular motions intact in all directions. NECK: No adenopathy. LUNGS: Clear. HEART: Regular rhythm. ABDOMEN: Soft. I am unable to feel liver or spleen. EXTREMITIES: No edema, cyanosis, or clubbing. PERTINENT LAB: White count 12.2 and hemoglobin 10.2. Sodium is 142, potassium 4.8, chloride 106, CO2 19, BUN 12, and creatinine 2.3, noted on 07/06/2016, BUN 4 and creatinine 0.5. Glucose is ranged from 144 to 197. IMPRESSION: The patient has acute kidney injury, likely contrast nephropathy in view of her clinical history and contrast. If possible, she has other etiologies. I doubt that she has obstruction based on her imaging and clinical history of voiding well. We will check a bladder scan. Monitor serial laboratories. Hydrate the patient and observe her response. Omari Werner M.D. DR: TREY JOB#: [id number] CC:
--- NOTE | 2016-07-10 21:49 | Procedure Note ---
DATE OF PROCEDURE: 07/10/2016 SURGEON: Yves Melendez M.D. PROCEDURE: Upper endoscopy with biopsy. ANESTHESIOLOGIST: . INSTRUMENT: Olympus adult flexible endoscope. INDICATION: Abdominal pain. REASON FOR PROCEDURE: The procedure, risks, benefits, and possible consequences, including hemorrhage, aspiration, perforation and infection, and alternative treatments, were explained to the patient/legal guardian by Dr. Yves Melendez and the patient/legal guardian understood and accepted these risks. PROCEDURE: After informed consent was obtained and the patient was adequately sedated, Olympus upper endoscope was advanced from mouth into the second portion of the duodenum and retroflexion was performed of the stomach. The patient has evidence of three to four shallow ulceration/erosion in the antrum of the stomach. No obvious bleeding from this ulcerations were seen at this time. Random biopsy from antrum of the stomach was obtained to rule out H. pylori infection. Otherwise, the rest of the upper endoscopic examination was within normal limit. There was no evidence of any hiatal hernia. No evidence of any esophagitis. No esophageal ulceration. No evidece of any duodenal ulceration. The patient tolerated the procedure without any complication. SUMMARY OF FINDINGS: Multiple antral erosion and may be one shallow ulceration, otherwise normal upper endoscopic examination. RECOMMENDATIONS: Followup biopsy result and treat accordingly. I want to thank, Dr. Jessica Silver, for this kind referral. Yves Melendez M.D. DR: Janette JOB#: [id number] CC: Sudhir Silver M.D.; Fax#: [phone]
[2016-07-11] VITALS: BP 139/78
[2016-07-11 04:00] VITALS: BP 141/72
[2016-07-11 06:17] LABS: BASOPHILS % (AUTO) 0.4 % (0.0-2.0); LYMPHOCYTES % (AUTO) 12.7 % (20.0-45.0); MEAN CORPUSCULAR HGB CONC 31.9 G/DL (32.0-36.0); MEAN CORPUSCULAR VOLUME 85 FL (80-99); MEAN PLATELET VOLUME 6.4 FL (6.5-10.1); MONOCYTES % (AUTO) 6.8 % (1.0-10.0); NEUTROPHILS % (AUTO) 79.1 % (45.0-75.0); PLATELET COUNT 248 K/UL (150-450); RED BLOOD COUNT 3.74 M/UL (4.20-5.40); RED CELL DISTRIBUTION WIDTH 12.2 % (11.6-14.8); WHITE BLOOD COUNT 11.1 K/UL (4.8-10.8)
[2016-07-11] MEDS: Vancomycin oral 125mg/2.5ml ORAL SCH ×4 (06:37→18:29)
[2016-07-11 06:43] LABS: ALBUMIN/GLOBULIN RATIO 0.6 (1.0-2.7); CALCIUM 8.4 mg/dL (8.6-10.2); GLOMERULAR FILTRATION RATE 24.7 mL/min (>60); POTASSIUM 4.3 mEQ/L (3.4-4.9)
[2016-07-11 08:00] VITALS: BP 141/84
--- NOTE | 2016-07-11 08:31 | General Progress Note ---
Assessment/Plan Problem List: (1) Fever ICD Codes: R50.9 - Fever, unspecified SNOMED: 146210971 Qualifiers: Qualified Codes: R50.81 - Fever presenting with conditions classified elsewhere (2) Leukocytosis ICD Codes: D72.829 - Elevated white blood cell count, unspecified SNOMED: 390884448, 925748161 Qualifiers: Qualified Codes: D72.825 - Bandemia (3) Abdominal pain ICD Codes: R10.9 - Unspecified abdominal pain SNOMED: 13719518, 997325158 Qualifiers: Qualified Codes: R10.13 - Epigastric pain Status: stable Assessment/Plan ivf antiemetics added po vanco iv pain rx MRi abd check tumor markers not ready for dc monitor renal fxn encourage po Subjective ROS Limited/Unobtainable: No Constitutional: Reports: malaise, weakness HEENT: Reports: no symptoms Cardiovascular: Reports: no symptoms Respiratory: Reports: no symptoms Gastrointestinal/Abdominal: Reports: abdominal pain, poor appetite Genitourinary: Reports: no symptoms Neurologic/Psychiatric: Reports: no symptoms Endocrine: Reports: no symptoms Hematologic/Lymphatic: Reports: anemia Allergies: Coded Allergies: No Known Allergies (Unverified , 07/05/16) All Systems: reviewed and negative except above Subjective no diarrhea. still with abd pain. slightly better. no cp/sob. renal fxn slightly better. EGD with small ulcer- not bleeding Objective Last 24 Hour Vital Signs Date Time Temp Pulse Resp B/P Pulse Ox O2 Delivery O2 Flow Rate FiO2 07/11/16 08:00 97.7 96 19 141/84 95 Room Air 07/11/16 04:00 98.3 88 20 141/72 96 Room Air 07/11/16 00:00 98.1 91 22 139/78 90 Room Air 07/10/16 14:30 98.4 90 16 163/87 95 Room Air 07/10/16 14:15 92 15 153/88 96 Room Air 07/10/16 14:00 91 18 148/90 99 Nasal Cannula 2.0 07/10/16 13:59 90 19 99 07/10/16 13:50 92 17 150/92 99 Nasal Cannula 2.0 07/10/16 13:40 90 16 152/92 99 Nasal Cannula 2.0 07/10/16 13:35 87 16 147/82 99 Nasal Cannula 2.0 07/10/16 13:30 98.4 88 15 165/92 99 Nasal Cannula 2.0 07/10/16 12:07 98.1 100 20 150/100 92 Room Air 07/10/16 08:30 98.2 97 20 156/87 96 Room Air Bad tableLaboratory Tests 07/10/16 10:15: White Blood Count 12.2H, Red Blood Count 3.80L, Hemoglobin 10.2L, Hematocrit 32.3L, Mean Corpuscular Volume 85, Mean Corpuscular Hemoglobin 26.9L, Mean Corpuscular Hemoglobin Concent 31.6L, Red Cell Distribution Width 11.9, Platelet Count 263, Mean Platelet Volume 6.6, Neutrophils (%) (Auto) 83.7H, Lymphocytes (%) (Auto) 8.6L, Monocytes (%) (Auto) 7.2, Eosinophils (%) (Auto) 0.2, Basophils (%) (Auto) 0.2 07/10/16 14:50: Urine Color Pale yellow, Urine Appearance Clear, Urine pH 5, Urine Specific [place] 1.005, Urine Protein Negative, Urine Glucose (UA) Negative, Urine Ketones Negative, Urine Occult Blood 3+H, Urine Nitrite Negative, Urine Bilirubin Negative, Urine Urobilinogen Normal, Urine Leukocyte Esterase Negative , Urine RBC 2-4H, Urine WBC 0-2, Urine Squamous Epithelial Cells Occasional, Urine Bacteria Few, Urine Random Sodium 101, Urine Creatinine 26.5 07/11/16 05:20: White Blood Count 11.1H, Red Blood Count 3.74L, Hemoglobin 10.1L, Hematocrit 31.6L, Mean Corpuscular Volume 85, Mean Corpuscular Hemoglobin 27.0, Mean Corpuscular Hemoglobin Concent 31.9L, Red Cell Distribution Width 12.2, Platelet Count 248, Mean Platelet Volume 6.4L, Neutrophils (%) (Auto) 79.1H, Lymphocytes (%) (Auto) 12.7L, Monocytes (%) (Auto) 6.8, Eosinophils (%) (Auto) 1.0, Basophils (%) (Auto) 0.4, Sodium Level 143, Potassium Level 4.3, Chloride Level 110H, Carbon Dioxide Level 18L, Anion Gap 15, Blood Urea Nitrogen 13, Creatinine 2.0H, Estimat Glomerular Filtration Rate 24.7, Glucose Level 107H, Calcium Level 8.4L, Total Bilirubin 0.2, Aspartate Amino Transf (AST/SGOT) 51H, Alanine Aminotransferase (ALT/SGPT) 19, Alkaline Phosphatase 84, Total Protein 6.0L, Albumin 2.3L, Globulin 3.7, Albumin/Globulin Ratio 0.6L Height (Feet): 5 Height (Inches): 4.00 Weight (Pounds): 130 Objective General Appearance: WD/WN, alert Neck: normal alignment, supple, normal inspection Cardiovascular: normal rate Respiratory/Chest: chest wall non-tender, lungs clear Abdomen: normal bowel sounds, non tender, soft, no organomegaly, no mass Edema: no edema noted Arm (L), no edema noted Arm (R), no edema noted Leg (L), no edema noted Leg (R), no edema noted Pedal (L), no edema noted Pedal (R), no edema noted 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
[2016-07-11] MEDS: Pantoprazole Inj IVP SCH (08:47)
[2016-07-11] MEDS: Heparin 5000 units/ml inj SUBQ SCH ×2 (08:51→20:08)
--- NOTE | 2016-07-11 09:26 | General Progress Note ---
Progress Note Progress Note Was asked by Dr bradley to se pt for abdominal pain pt seen and examined. chart and xrays reviewed. consult dictated. imp abdominal pain, etiology obscure but may be related to c. diffici colitis. Antral erosions seen on EGD unlikely to be cause. no evidence of acute surgical problem, either on exam or radiologically. Will follow JOHN SETHI Jul 11, 2016 09:26
--- NOTE | 2016-07-11 10:03 | Infectious Diseases Prog Note ---
Assessment/Plan Assessment/Plan antibiotics : vancomycin po A 1. c.diff colitis 2. fever improving P 1. continue po vancomycin 11 more days 2. will follow up cultures Subjective Constitutional: Denies: chills, fever Respiratory: Denies: dry cough, shortness of breath Gastrointestinal/Abdominal: Reports: diarrhea, Denies: nausea, vomiting Musculoskeletal: Reports: pain - abdominal decreasing Allergies: Coded Allergies: No Known Allergies (Unverified , 07/05/16) Objective Vital Signs Last 24 Hour Vital Signs Date Time Temp Pulse Resp B/P Pulse Ox O2 Delivery O2 Flow Rate FiO2 07/11/16 09:17 97.7 07/11/16 08:00 97.7 96 19 141/84 95 Room Air 07/11/16 04:00 98.3 88 20 141/72 96 Room Air 07/11/16 00:00 98.1 91 22 139/78 90 Room Air 07/10/16 14:30 98.4 90 16 163/87 95 Room Air 07/10/16 14:15 92 15 153/88 96 Room Air 07/10/16 14:00 91 18 148/90 99 Nasal Cannula 2.0 07/10/16 13:59 90 19 99 07/10/16 13:50 92 17 150/92 99 Nasal Cannula 2.0 07/10/16 13:40 90 16 152/92 99 Nasal Cannula 2.0 07/10/16 13:35 87 16 147/82 99 Nasal Cannula 2.0 07/10/16 13:30 98.4 88 15 165/92 99 Nasal Cannula 2.0 07/10/16 12:07 98.1 100 20 150/100 92 Room Air Height (Feet): 5 Height (Inches): 4.00 Weight (Pounds): 130 Respiratory/Chest: lungs clear Cardiovascular: normal rate, regular rhythm, no gallop/murmur Abdomen: tender - in epigastric area Extremities: no edema Laboratory Tests Test 07/10/16 10:15 07/10/16 14:50 07/11/16 05:20 White Blood Count 12.2 K/UL (4.8-10.8) H 11.1 K/UL (4.8-10.8) H Red Blood Count 3.80 M/UL (4.20-5.40) L 3.74 M/UL (4.20-5.40) L Hemoglobin 10.2 G/DL (12.0-16.0) L 10.1 G/DL (12.0-16.0) L Hematocrit 32.3 % (37.0-47.0) L 31.6 % (37.0-47.0) L Mean Corpuscular Volume 85 FL (80-99) 85 FL (80-99) Mean Corpuscular Hemoglobin 26.9 PG (27.0-31.0) L 27.0 PG (27.0-31.0) Mean Corpuscular Hemoglobin Concent 31.6 G/DL (32.0-36.0) L 31.9 G/DL (32.0-36.0) L Red Cell Distribution Width 11.9 % (11.6-14.8) 12.2 % (11.6-14.8) Platelet Count 263 K/UL (150-450) 248 K/UL (150-450) Mean Platelet Volume 6.6 FL (6.5-10.1) 6.4 FL (6.5-10.1) L Neutrophils (%) (Auto) 83.7 % (45.0-75.0) H 79.1 % (45.0-75.0) H Lymphocytes (%) (Auto) 8.6 % (20.0-45.0) L 12.7 % (20.0-45.0) L Monocytes (%) (Auto) 7.2 % (1.0-10.0) 6.8 % (1.0-10.0) Eosinophils (%) (Auto) 0.2 % (0.0-3.0) 1.0 % (0.0-3.0) Basophils (%) (Auto) 0.2 % (0.0-2.0) 0.4 % (0.0-2.0) Urine Color Pale yellow Urine Appearance Clear Urine pH 5 (4.5-8.0) Urine Specific [place] 1.005 (1.005-1.035) Urine Protein Negative (NEGATIVE) Urine Glucose (UA) Negative (NEGATIVE) Urine Ketones Negative (NEGATIVE) Urine Occult Blood 3+ (NEGATIVE) H Urine Nitrite Negative (NEGATIVE) Urine Bilirubin Negative (NEGATIVE) Urine Urobilinogen Normal MG/DL (0.0-1.0) Urine Leukocyte Esterase Negative (NEGATIVE) Urine RBC 2-4 /HPF (0 - 2) H Urine WBC 0-2 /HPF (0 - 2) Urine Squamous Epithelial Cells Occasional /LPF Urine Bacteria Few /HPF (NONE) Urine Random Sodium 101 mmol/L Urine Creatinine 26.5 mg/dL Sodium Level 143 mEQ/L (135-145) Potassium Level 4.3 mEQ/L (3.4-4.9) Chloride Level 110 mEQ/L (98-107) H Carbon Dioxide Level 18 mEQ/L (20-30) L Anion Gap 15 (5-15) Blood Urea Nitrogen 13 mg/dL (7-23) Creatinine 2.0 mg/dL (0.5-0.9) H Estimat Glomerular Filtration Rate 24.7 mL/min (>60) Glucose Level 107 mg/dL (74-106) H Calcium Level 8.4 mg/dL (8.6-10.2) L Total Bilirubin 0.2 mg/dL (0.0-1.2) Aspartate Amino Transf (AST/SGOT) 51 U/L (5-40) H Alanine Aminotransferase (ALT/SGPT) 19 U/L (3-33) Alkaline Phosphatase 84 U/L (35-104) Total Protein 6.0 g/dL (6.6-8.7) L Albumin 2.3 g/dL (3.5-5.2) L Globulin 3.7 g/dL Albumin/Globulin Ratio 0.6 (1.0-2.7) L Carcinoembryonic Antigen 0.3 ng/mL CA 19-9 Antigen 6.14 U/mL (< 37) SINAN AYOUB Jul 11, 2016 10:03
--- NOTE | 2016-07-11 11:32 | Diagnostic Imaging Report ---
Indication:Elevated Bun and Creatinine. Technique: Grayscale and duplex Doppler imaging of the kidneys performed. Comparison: None Findings: The size, contour, and echogenicity of both kidneys are within normal limits. There is no hydronephrosis. The IVC is unremarkable. The urinary bladder is moderately distended. The kidneys measure between 11 and 12 cm in length. Cortical volume is normal. Impression: Distended urinary bladder. Negative exam otherwise
--- NOTE | 2016-07-11 11:44 | General Progress Note ---
Assessment/Plan Problem List: (1) C. difficile colitis ICD Codes: A04.7 - Enterocolitis due to Clostridium difficile SNOMED: 951779272 (2) Gastritis ICD Codes: K29.70 - Gastritis, unspecified, without bleeding SNOMED: 7056601 (3) Abdominal pain ICD Codes: R10.9 - Unspecified abdominal pain SNOMED: 28807432, [id number] Qualifiers: Qualified Codes: R10.13 - Epigastric pain Assessment/Plan felling better add carafate fu labs Subjective ROS Limited/Unobtainable: Yes Allergies: Coded Allergies: No Known Allergies (Unverified , 07/05/16) Subjective feeling better Objective Last 24 Hour Vital Signs Date Time Temp Pulse Resp B/P Pulse Ox O2 Delivery O2 Flow Rate FiO2 07/11/16 09:17 97.7 07/11/16 08:00 97.7 96 19 141/84 95 Room Air 07/11/16 04:00 98.3 88 20 141/72 96 Room Air 07/11/16 00:00 98.1 91 22 139/78 90 Room Air 07/10/16 14:30 98.4 90 16 163/87 95 Room Air 07/10/16 14:15 92 15 153/88 96 Room Air 07/10/16 14:00 91 18 148/90 99 Nasal Cannula 2.0 07/10/16 13:59 90 19 99 07/10/16 13:50 92 17 150/92 99 Nasal Cannula 2.0 07/10/16 13:40 90 16 152/92 99 Nasal Cannula 2.0 07/10/16 13:35 87 16 147/82 99 Nasal Cannula 2.0 07/10/16 13:30 98.4 88 15 165/92 99 Nasal Cannula 2.0 07/10/16 12:07 98.1 100 20 150/100 92 Room Air Bad tableLaboratory Tests 07/10/16 14:50: Urine Color Pale yellow, Urine Appearance Clear, Urine pH 5, Urine Specific [place] 1.005, Urine Protein Negative, Urine Glucose (UA) Negative, Urine Ketones Negative, Urine Occult Blood 3+H, Urine Nitrite Negative, Urine Bilirubin Negative, Urine Urobilinogen Normal, Urine Leukocyte Esterase Negative , Urine RBC 2-4H, Urine WBC 0-2, Urine Squamous Epithelial Cells Occasional, Urine Bacteria Few, Urine Random Sodium 101, Urine Creatinine 26.5 07/11/16 05:20: White Blood Count 11.1H, Red Blood Count 3.74L, Hemoglobin 10.1L, Hematocrit 31.6L, Mean Corpuscular Volume 85, Mean Corpuscular Hemoglobin 27.0, Mean Corpuscular Hemoglobin Concent 31.9L, Red Cell Distribution Width 12.2, Platelet Count 248, Mean Platelet Volume 6.4L, Neutrophils (%) (Auto) 79.1H, Lymphocytes (%) (Auto) 12.7L, Monocytes (%) (Auto) 6.8, Eosinophils (%) (Auto) 1.0, Basophils (%) (Auto) 0.4, Sodium Level 143, Potassium Level 4.3, Chloride Level 110H, Carbon Dioxide Level 18L, Anion Gap 15, Blood Urea Nitrogen 13, Creatinine 2.0H, Estimat Glomerular Filtration Rate 24.7, Glucose Level 107H, Calcium Level 8.4L, Total Bilirubin 0.2, Aspartate Amino Transf (AST/SGOT) 51H, Alanine Aminotransferase (ALT/SGPT) 19, Alkaline Phosphatase 84, Total Protein 6.0L, Albumin 2.3L, Globulin 3.7, Albumin/Globulin Ratio 0.6L, Carcinoembryonic Antigen 0.3, CA 19-9 Antigen 6.14 Height (Feet): 5 Height (Inches): 4.00 Weight (Pounds): 130 General Appearance: alert EENT: normal ENT inspection Neck: supple Cardiovascular: normal rate Respiratory/Chest: lungs clear Abdomen: non tender, soft, hypoactive bowel sounds Extremities: non-tender MARY HARRIS Jul 11, 2016 11:44
[2016-07-11 12:00] VITALS: BP 137/87
--- NOTE | 2016-07-11 12:29 | Consultation ---
DATE OF CONSULTATION: 07/11/2016 SURGICAL CONSULTATION: REASON FOR CONSULT: Abdominal pain. HISTORY OF PRESENT ILLNESS: The patient is an very pleasant, 71-year-old, woman presented to the emergency department on 07/05/2016 with the history of abdominal pain of unknown etiology. The patient had recently been on antibiotics and omeprazole and was described most epigastric radiating towards the back. No other symptoms of fevers, chills, diarrhea, nausea, or vomiting. No change of dysuria noted. The patient had been admitted for same. She has undergone CT scan, since this has been seen by numerous consultants including Gastroenterology, Infectious Diseases, and Renal Medicine. She had undergone a CT scan, which showed no evidence of any acute surgical disease. No obstruction, abscess, gallstones, or appendicitis. Ultrasound was unremarkable. The patient has had stool cultures, which were positive for C. difficile for which she is undergone prior to treatment. PAST MEDICAL HISTORY: Otherwise unremarkable. PAST SURGICAL HISTORY: She had an appendectomy in the distant past. ALLERGIES: None known. SOCIAL HISTORY: No tobacco, ethanol, or drugs. She is single and retired. REVIEW OF SYSTEMS: Noncontributory. PHYSICAL EXAMINATION: GENERAL: Reveals a well-developed, pleasant woman in no acute distress, was alert and cooperative, and fluent in [place]. VITAL SIGNS: Show temperature 97.7, respirations 19 pulse of 96, blood pressure 141/64, and T-max was 99. HEENT: The pupils are equal, round , and reactive to light. There are no scleral icterus. The throat is clear. No exudates of pharyngitis noted. NECK: Supple. No jugular venous distention. No JVD or thyromegaly. LUNGS: Clear bilaterally. HEART: Normal sinus rhythm. ABDOMEN: Soft. There is a well-healed scar consistent with appendectomy. There is no guarding, rebound, or rigidity. There is no Gabriel sign is negative. There is no significant tenderness elicited on my exam. EXTREMITIES: No clubbing, cyanosis, or edema. LABORATORY DATA: Showed a sodium of 147 potassium 4.3, chloride 110 bicarb 16 BUN was 13 and 13 creatinine 2.0 maximum was 2.4. The glucose is 107 total bilirubin 0.2 AST of 51, ALT of 19 and AST of 2 alkaline phosphatase of 84, total protein is 6.0 albumin 2.3, amylase was 36. Microbiology urine culture no growth after 48 hours. Stool culture no Salmonella Shigella, Campylobacter, C. difficile, E. silk proxy if toxin was positive. Blood cultures negative and the patient did undergo an endoscopy yesterday results of which showed mild antral erosions 1 shallow ulceration and otherwise unremarkable. The patient has not had a colonoscopy impression abdominal pain, etiology uncertain. I am at present does not show any signs of any acute surgical problem there is no evidence of cholecystitis bowel obstruction or intra-abdominal abscess. She has had pain out of proportion to physical findings. I would this all may be related to C. difficile colitis. At present no acute surgical is concerns thank you Dr. chahal from [facility] to participate in the management denture would kick in and she will be. Jasbir Del Rosario M.D. DR: ELY JOB#: [id number] CC:
[2016-07-11] MEDS: Sucralfate 1gm tab ORAL SCH ×3 (13:53→20:07)
--- NOTE | 2016-07-11 16:25 | Nephrology Progress Note ---
Assessment/Plan Assessment 1) NISHI due to RCIN , improving 2) C. diff colitis 3) She is volume repleted, clinically Plan: Will D/C IV fluid Subjective Subjective She denies c/p or sob, creat is down to 2.0, she is found to have C. diff Objective Objective Last 24 Hour Vital Signs Date Time Temp Pulse Resp B/P Pulse Ox O2 Delivery O2 Flow Rate FiO2 07/11/16 12:00 97.9 84 20 137/87 95 Room Air 07/11/16 09:17 97.7 07/11/16 08:00 97.7 96 19 141/84 95 Room Air 07/11/16 04:00 98.3 88 20 141/72 96 Room Air 07/11/16 00:00 98.1 91 22 139/78 90 Room Air Bad tableLaboratory Tests 07/11/16 05:20: White Blood Count 11.1H, Red Blood Count 3.74L, Hemoglobin 10.1L, Hematocrit 31.6L, Mean Corpuscular Volume 85, Mean Corpuscular Hemoglobin 27.0, Mean Corpuscular Hemoglobin Concent 31.9L, Red Cell Distribution Width 12.2, Platelet Count 248, Mean Platelet Volume 6.4L, Neutrophils (%) (Auto) 79.1H, Lymphocytes (%) (Auto) 12.7L, Monocytes (%) (Auto) 6.8, Eosinophils (%) (Auto) 1.0, Basophils (%) (Auto) 0.4, Sodium Level 143, Potassium Level 4.3, Chloride Level 110H, Carbon Dioxide Level 18L, Anion Gap 15, Blood Urea Nitrogen 13, Creatinine 2.0H, Estimat Glomerular Filtration Rate 24.7, Glucose Level 107H, Calcium Level 8.4L, Total Bilirubin 0.2, Aspartate Amino Transf (AST/SGOT) 51H, Alanine Aminotransferase (ALT/SGPT) 19, Alkaline Phosphatase 84, Total Protein 6.0L, Albumin 2.3L, Globulin 3.7, Albumin/Globulin Ratio 0.6L, Carcinoembryonic Antigen 0.3, CA 19-9 Antigen 6.14 Height (Feet): 5 Height (Inches): 4.00 Weight (Pounds): 130 General Appearance: WD/WN, no apparent distress EENT: PERRL/EOMI Neck: non-tender Cardiovascular: normal rate, regular rhythm, JVD - high Respiratory/Chest: lungs clear Abdomen: normal bowel sounds, non tender Extremities: normal range of motion 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
[2016-07-11 20:00] VITALS: BP 130/78
[2016-07-12] VITALS (7 sets, daily range): BP systolic 150–165; BP diastolic 77–99
[2016-07-12] MEDS: Vancomycin oral 125mg/2.5ml ORAL SCH ×5 (00:23→23:55)
[2016-07-12 07:29] LABS: BASOPHILS % (AUTO) 0.3 % (0.0-2.0); EOSINOPHILS % (AUTO) 2.6 % (0.0-3.0); LYMPHOCYTES % (AUTO) 10.9 % (20.0-45.0); MEAN CORPUSCULAR HEMOGLOBIN 26.8 PG (27.0-31.0); MEAN CORPUSCULAR HGB CONC 31.6 G/DL (32.0-36.0); MEAN CORPUSCULAR VOLUME 85 FL (80-99); MEAN PLATELET VOLUME 6.5 FL (6.5-10.1); MONOCYTES % (AUTO) 7.1 % (1.0-10.0); NEUTROPHILS % (AUTO) 79.2 % (45.0-75.0); PLATELET COUNT 247 K/UL (150-450); RED BLOOD COUNT 3.67 M/UL (4.20-5.40); WHITE BLOOD COUNT 10.2 K/UL (4.8-10.8)
[2016-07-12 07:50] LABS: ALANINE AMINOTRANSFERASE 22 U/L (3-33); ALBUMIN/GLOBULIN RATIO 0.8 (1.0-2.7); ANION GAP 16 (5-15); ASPARTATE AMINO TRANSFERASE 43 U/L (5-40); CALCIUM 7.9 mg/dL (8.6-10.2); CARBON DIOXIDE 21 mEQ/L (20-30); CHLORIDE 104 mEQ/L (98-107); CREATININE 1.7 mg/dL (0.5-0.9); GLOMERULAR FILTRATION RATE 29.8 mL/min (>60); HEMOLYSIS 3; POTASSIUM 3.6 mEQ/L (3.4-4.9); SODIUM 141 mEQ/L (135-145); TOTAL PROTEIN 5.6 g/dL (6.6-8.7)
--- NOTE | 2016-07-12 08:31 | General Progress Note ---
Progress Note Progress Note Seen at request of dr bradley. Pt with abdominal pain.of uncertain etiology. Workup showed that pt was C diff positive.. Had EGD showing some gastric erosions. CT and US reviewed with radiologist showing no evidence of abscess obstruction or inflammatory process. today pt feels much better. Sitting up in chair. ate cream of wheat for breakfast. reports small, loose bowel movement. No pain and smiling. abdomen soft, nontender. Vital Sign - Last 24 Hours 07/11/16 07/11/16 07/11/16 07/12/16 12:00 20:00 21:25 00:00 Temp 97.9 98.0 97.9 98.1 Pulse 84 82 87 Resp 20 16 22 B/P 137/87 130/78 159/91 Pulse Ox 95 97 92 O2 Delivery Room Air Room Air Room Air 07/12/16 04:00 Temp 97.7 Pulse 85 Resp 22 B/P 155/90 Pulse Ox 92 O2 Delivery Room Air Intake and Output 07/11/16 07/11/16 07/12/16 15:00 23:00 07:00 Intake Total 735 ml 701 ml Balance 735 ml 701 ml Laboratory Tests Test 07/12/16 06:15 White Blood Count 10.2 K/UL (4.8-10.8) Red Blood Count 3.67 M/UL (4.20-5.40) L Hemoglobin 9.8 G/DL (12.0-16.0) L Hematocrit 31.1 % (37.0-47.0) L Mean Corpuscular Volume 85 FL (80-99) Mean Corpuscular Hemoglobin 26.8 PG (27.0-31.0) L Mean Corpuscular Hemoglobin Concent 31.6 G/DL (32.0-36.0) L Red Cell Distribution Width 12.0 % (11.6-14.8) Platelet Count 247 K/UL (150-450) Mean Platelet Volume 6.5 FL (6.5-10.1) Neutrophils (%) (Auto) 79.2 % (45.0-75.0) H Lymphocytes (%) (Auto) 10.9 % (20.0-45.0) L Monocytes (%) (Auto) 7.1 % (1.0-10.0) Eosinophils (%) (Auto) 2.6 % (0.0-3.0) Basophils (%) (Auto) 0.3 % (0.0-2.0) Sodium Level 141 mEQ/L (135-145) Potassium Level 3.6 mEQ/L (3.4-4.9) Chloride Level 104 mEQ/L (98-107) Carbon Dioxide Level 21 mEQ/L (20-30) Anion Gap 16 (5-15) H Blood Urea Nitrogen 14 mg/dL (7-23) Creatinine 1.7 mg/dL (0.5-0.9) H Estimat Glomerular Filtration Rate 29.8 mL/min (>60) Glucose Level 111 mg/dL (74-106) H Calcium Level 7.9 mg/dL (8.6-10.2) L Total Bilirubin < 0.2 mg/dL (0.0-1.2) Aspartate Amino Transf (AST/SGOT) 43 U/L (5-40) H Alanine Aminotransferase (ALT/SGPT) 22 U/L (3-33) Alkaline Phosphatase 74 U/L (35-104) Total Protein 5.6 g/dL (6.6-8.7) L Albumin 2.5 g/dL (3.5-5.2) L Globulin 3.1 g/dL Albumin/Globulin Ratio 0.8 (1.0-2.7) L imp resolving abdominal pain ? 2o to C diff colitis? No acute surgical issues. JOHN SETHI Jul 12, 2016 08:31
[2016-07-12] MEDS: Sucralfate 1gm tab ORAL SCH ×4 (08:45→20:09)
[2016-07-12] MEDS: Heparin 5000 units/ml inj SUBQ SCH ×2 (08:55→20:10)
--- NOTE | 2016-07-12 10:42 | General Progress Note ---
Assessment/Plan Problem List: (1) Fever ICD Codes: R50.9 - Fever, unspecified SNOMED: 088265392 Qualifiers: Qualified Codes: R50.81 - Fever presenting with conditions classified elsewhere (2) Leukocytosis ICD Codes: D72.829 - Elevated white blood cell count, unspecified SNOMED: 303742130, 720280869 Qualifiers: Qualified Codes: D72.825 - Bandemia (3) Abdominal pain ICD Codes: R10.9 - Unspecified abdominal pain SNOMED: 18059102, 092397524 Qualifiers: Qualified Codes: R10.13 - Epigastric pain Status: stable, progressing Assessment/Plan ivf antiemetics added. take before meals po vanco iv pain rx MRi abd tomorrow not ready for dc monitor renal fxn encourage po Subjective ROS Limited/Unobtainable: No Constitutional: Reports: malaise, weakness HEENT: Reports: no symptoms Cardiovascular: Reports: no symptoms Respiratory: Reports: no symptoms Gastrointestinal/Abdominal: Reports: abdominal pain, diarrhea, nausea, poor appetite Genitourinary: Reports: no symptoms Neurologic/Psychiatric: Reports: no symptoms Endocrine: Reports: no symptoms Hematologic/Lymphatic: Reports: no symptoms Allergies: Coded Allergies: No Known Allergies (Unverified , 07/05/16) All Systems: reviewed and negative except above Subjective 1 episode of this am. still with abd pain. slightly better. no cp/sob. renal fxn slightly better. EGD with small ulcer- not bleeding. not able to tolerate any po due to nausea and abd pain Objective Last 24 Hour Vital Signs Date Time Temp Pulse Resp B/P Pulse Ox O2 Delivery O2 Flow Rate FiO2 07/12/16 08:00 97.5 88 19 154/91 93 Room Air 07/12/16 04:00 97.7 85 22 155/90 92 Room Air 07/12/16 00:00 98.1 87 22 159/91 92 Room Air 07/11/16 21:25 97.9 07/11/16 20:00 98.0 82 16 130/78 97 Room Air 07/11/16 12:00 97.9 84 20 137/87 95 Room Air Intake and Output 07/11/16 07/12/16 19:00 07:00 Intake Total 860 ml 576 ml Balance 860 ml 576 ml Intake Oral 360 ml 200 ml IV Total 500 ml 376 ml # Voids 2 4 Laboratory Tests 07/12/16 06:15: White Blood Count 10.2, Red Blood Count 3.67L, Hemoglobin 9.8L, Hematocrit 31.1L , Mean Corpuscular Volume 85, Mean Corpuscular Hemoglobin 26.8L, Mean Corpuscular Hemoglobin Concent 31.6L, Red Cell Distribution Width 12.0, Platelet Count 247, Mean Platelet Volume 6.5, Neutrophils (%) (Auto) 79.2H, Lymphocytes (%) (Auto) 10.9L, Monocytes (%) (Auto) 7.1, Eosinophils (%) (Auto) 2.6, Basophils (%) (Auto) 0.3, Sodium Level 141, Potassium Level 3.6, Chloride Level 104, Carbon Dioxide Level 21, Anion Gap 16H, Blood Urea Nitrogen 14, Creatinine 1.7H, Estimat Glomerular Filtration Rate 29.8, Glucose Level 111H, Calcium Level 7.9L, Total Bilirubin < 0.2, Aspartate Amino Transf (AST/SGOT) 43H , Alanine Aminotransferase (ALT/SGPT) 22, Alkaline Phosphatase 74, Total Protein 5.6L, Albumin 2.5L, Globulin 3.1, Albumin/Globulin Ratio 0.8L Height (Feet): 5 Height (Inches): 4.00 Weight (Pounds): 130 Objective General Appearance: WD/WN, alert Neck: normal alignment, supple, normal inspection Cardiovascular: normal rate Respiratory/Chest: chest wall non-tender, lungs clear Abdomen: normal bowel sounds, non tender, soft, no organomegaly, no mass Edema: no edema noted Arm (L), no edema noted Arm (R), no edema noted Leg (L), no edema noted Leg (R), no edema noted Pedal (L), no edema noted Pedal (R), no edema noted 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
--- NOTE | 2016-07-12 10:48 | Infectious Diseases Prog Note ---
Assessment/Plan Assessment/Plan A 1. c.difficile colitis 2. fever resolved 3. anemia 4. hepatic cysts P 1. continue Flagyl 10 more days Subjective ROS Limited/Unobtainable: No Constitutional: Reports: no symptoms Respiratory: Reports: no symptoms Cardiovascular: Reports: no symptoms Gastrointestinal/Abdominal: Reports: diarrhea, other - decreased abdominal pain Genitourinary: Reports: no symptoms Allergies: Coded Allergies: No Known Allergies (Unverified , 07/05/16) Objective Vital Signs Last 24 Hour Vital Signs Date Time Temp Pulse Resp B/P Pulse Ox O2 Delivery O2 Flow Rate FiO2 07/12/16 08:00 97.5 88 19 154/91 93 Room Air 07/12/16 04:00 97.7 85 22 155/90 92 Room Air 07/12/16 00:00 98.1 87 22 159/91 92 Room Air 07/11/16 21:25 97.9 07/11/16 20:00 98.0 82 16 130/78 97 Room Air 07/11/16 12:00 97.9 84 20 137/87 95 Room Air Height (Feet): 5 Height (Inches): 4.00 Weight (Pounds): 130 General Appearance: no acute distress HEENT: mucous membranes moist Respiratory/Chest: lungs clear Cardiovascular: normal rate Abdomen: soft, non tender Extremities: no edema Neurologic/Psychiatric: alert, oriented x 3, responsive Laboratory Tests Test 07/12/16 06:15 White Blood Count 10.2 K/UL (4.8-10.8) Red Blood Count 3.67 M/UL (4.20-5.40) L Hemoglobin 9.8 G/DL (12.0-16.0) L Hematocrit 31.1 % (37.0-47.0) L Mean Corpuscular Volume 85 FL (80-99) Mean Corpuscular Hemoglobin 26.8 PG (27.0-31.0) L Mean Corpuscular Hemoglobin Concent 31.6 G/DL (32.0-36.0) L Red Cell Distribution Width 12.0 % (11.6-14.8) Platelet Count 247 K/UL (150-450) Mean Platelet Volume 6.5 FL (6.5-10.1) Neutrophils (%) (Auto) 79.2 % (45.0-75.0) H Lymphocytes (%) (Auto) 10.9 % (20.0-45.0) L Monocytes (%) (Auto) 7.1 % (1.0-10.0) Eosinophils (%) (Auto) 2.6 % (0.0-3.0) Basophils (%) (Auto) 0.3 % (0.0-2.0) Sodium Level 141 mEQ/L (135-145) Potassium Level 3.6 mEQ/L (3.4-4.9) Chloride Level 104 mEQ/L (98-107) Carbon Dioxide Level 21 mEQ/L (20-30) Anion Gap 16 (5-15) H Blood Urea Nitrogen 14 mg/dL (7-23) Creatinine 1.7 mg/dL (0.5-0.9) H Estimat Glomerular Filtration Rate 29.8 mL/min (>60) Glucose Level 111 mg/dL (74-106) H Calcium Level 7.9 mg/dL (8.6-10.2) L Total Bilirubin < 0.2 mg/dL (0.0-1.2) Aspartate Amino Transf (AST/SGOT) 43 U/L (5-40) H Alanine Aminotransferase (ALT/SGPT) 22 U/L (3-33) Alkaline Phosphatase 74 U/L (35-104) Total Protein 5.6 g/dL (6.6-8.7) L Albumin 2.5 g/dL (3.5-5.2) L Globulin 3.1 g/dL Albumin/Globulin Ratio 0.8 (1.0-2.7) L Current Medications Medications (Trade) Dose Ordered Sig/Ibis Route PRN Reason Start Time Stop Time Status Last Admin Dose Admin Acetaminophen (Tylenol) 650 mg Q4H PRN ORAL Mild Pain/Temp > 100.5 07/06/16 01:30 08/05/16 01:29 Acetaminophen/ Hydrocodone Bitart (Kathryn 10/325) 1 ea Q4H PRN ORAL For Severe Pain 07/09/16 06:45 07/16/16 06:44 07/09/16 12:39 Dextrose (Dextrose 50%) STAT PRN IV Hypoglycemia 07/06/16 01:30 08/05/16 01:29 Heparin Sodium (Porcine) (Heparin 5000 units/ml) 5,000 units EVERY 12 HOURS SUBQ 07/06/16 09:00 08/05/16 08:59 07/12/16 08:55 Hydromorphone HCl (Dilaudid) 2 mg Q3HR PRN IVP Severe Pain (Pain Scale 7-10) 07/09/16 18:00 07/16/16 17:59 07/12/16 10:30 Metoclopramide HCl (Reglan) 5 mg Q8H PRN IVP Nausea & Vomiting 07/10/16 18:00 08/09/16 17:59 07/12/16 05:02 Ondansetron HCl (Zofran) 4 mg Q4H PRN IVP Nausea & Vomiting 07/06/16 01:30 08/05/16 01:29 07/12/16 00:23 Ranitidine HCl 150 mg 150 mg QHS ORAL 07/11/16 21:00 08/10/16 20:59 07/11/16 20:07 Sodium Chloride (Sodium Chloride 1000ml bag) 1,000 ml @ 125 mls/hr Q8H IV 07/11/16 17:30 08/10/16 17:29 07/11/16 20:10 Sucralfate (Carafate) 1 gm FOUR TIMES A DAY ORAL 07/11/16 13:00 08/10/16 12:59 07/12/16 08:45 Vancomycin HCl (Vancomycin) 250 mg Q6HR ORAL 07/09/16 18:00 07/16/16 17:59 07/12/16 05:02 GLENIS SALES Jul 12, 2016 10:48
--- NOTE | 2016-07-12 14:44 | Nephrology Progress Note ---
Assessment/Plan Assessment 1) NISHI due to RCIN , improving 2) C. diff colitis 3) She is volume repleted, clinically Plan: Will continue to watch renal FX Subjective Subjective She denies c/p or sob, creat is down to 1.7, she continues with epigastric tenderness Objective Objective Last 24 Hour Vital Signs Date Time Temp Pulse Resp B/P Pulse Ox O2 Delivery O2 Flow Rate FiO2 07/12/16 13:52 160/93 07/12/16 12:00 97.5 84 19 160/93 95 Room Air 07/12/16 11:00 97.5 07/12/16 08:00 97.5 88 19 154/91 93 Room Air 07/12/16 04:00 97.7 85 22 155/90 92 Room Air 07/12/16 00:00 98.1 87 22 159/91 92 Room Air 07/11/16 20:00 98.0 82 16 130/78 97 Room Air Intake and Output 07/11/16 07/12/16 19:00 07:00 Intake Total 860 ml 701 ml Balance 860 ml 701 ml Intake Oral 360 ml 200 ml IV Total 500 ml 501 ml # Voids 2 4 Laboratory Tests 07/12/16 06:15: White Blood Count 10.2, Red Blood Count 3.67L, Hemoglobin 9.8L, Hematocrit 31.1L , Mean Corpuscular Volume 85, Mean Corpuscular Hemoglobin 26.8L, Mean Corpuscular Hemoglobin Concent 31.6L, Red Cell Distribution Width 12.0, Platelet Count 247, Mean Platelet Volume 6.5, Neutrophils (%) (Auto) 79.2H, Lymphocytes (%) (Auto) 10.9L, Monocytes (%) (Auto) 7.1, Eosinophils (%) (Auto) 2.6, Basophils (%) (Auto) 0.3, Sodium Level 141, Potassium Level 3.6, Chloride Level 104, Carbon Dioxide Level 21, Anion Gap 16H, Blood Urea Nitrogen 14, Creatinine 1.7H, Estimat Glomerular Filtration Rate 29.8, Glucose Level 111H, Calcium Level 7.9L, Total Bilirubin < 0.2, Aspartate Amino Transf (AST/SGOT) 43H , Alanine Aminotransferase (ALT/SGPT) 22, Alkaline Phosphatase 74, Total Protein 5.6L, Albumin 2.5L, Globulin 3.1, Albumin/Globulin Ratio 0.8L Height (Feet): 5 Height (Inches): 4.00 Weight (Pounds): 130 General Appearance: WD/WN, no apparent distress, alert EENT: PERRL/EOMI Neck: non-tender, normal alignment, supple Cardiovascular: normal rate, regular rhythm, no JVD Respiratory/Chest: lungs clear, normal breath sounds Abdomen: normal bowel sounds, other - Epigatric tenderness Extremities: normal range of motion, non-tender Neurologic: piece cutter II-XII grossly normal, no motor/sensory deficits BRICE FLYNN Jul 12, 2016 14:44
--- NOTE | 2016-07-12 16:22 | General Progress Note ---
Assessment/Plan Problem List: (1) C. difficile colitis ICD Codes: A04.7 - Enterocolitis due to Clostridium difficile SNOMED: 631936431 (2) Gastritis ICD Codes: K29.70 - Gastritis, unspecified, without bleeding SNOMED: 6700404 (3) Abdominal pain ICD Codes: R10.9 - Unspecified abdominal pain SNOMED: 68529213, [id number] Qualifiers: Qualified Codes: R10.13 - Epigastric pain Assessment/Plan felling better carafate fu labs pending MRI tomorrow Subjective ROS Limited/Unobtainable: Yes Allergies: Coded Allergies: No Known Allergies (Unverified , 07/05/16) Subjective feeling better Objective Last 24 Hour Vital Signs Date Time Temp Pulse Resp B/P Pulse Ox O2 Delivery O2 Flow Rate FiO2 07/12/16 13:52 160/93 07/12/16 12:00 97.5 84 19 160/93 95 Room Air 07/12/16 11:00 97.5 07/12/16 08:00 97.5 88 19 154/91 93 Room Air 07/12/16 04:00 97.7 85 22 155/90 92 Room Air 07/12/16 00:00 98.1 87 22 159/91 92 Room Air 07/11/16 20:00 98.0 82 16 130/78 97 Room Air Intake and Output 07/11/16 07/12/16 19:00 07:00 Intake Total 860 ml 701 ml Balance 860 ml 701 ml Intake Oral 360 ml 200 ml IV Total 500 ml 501 ml # Voids 2 4 Laboratory Tests 07/12/16 06:15: White Blood Count 10.2, Red Blood Count 3.67L, Hemoglobin 9.8L, Hematocrit 31.1L , Mean Corpuscular Volume 85, Mean Corpuscular Hemoglobin 26.8L, Mean Corpuscular Hemoglobin Concent 31.6L, Red Cell Distribution Width 12.0, Platelet Count 247, Mean Platelet Volume 6.5, Neutrophils (%) (Auto) 79.2H, Lymphocytes (%) (Auto) 10.9L, Monocytes (%) (Auto) 7.1, Eosinophils (%) (Auto) 2.6, Basophils (%) (Auto) 0.3, Sodium Level 141, Potassium Level 3.6, Chloride Level 104, Carbon Dioxide Level 21, Anion Gap 16H, Blood Urea Nitrogen 14, Creatinine 1.7H, Estimat Glomerular Filtration Rate 29.8, Glucose Level 111H, Calcium Level 7.9L, Total Bilirubin < 0.2, Aspartate Amino Transf (AST/SGOT) 43H , Alanine Aminotransferase (ALT/SGPT) 22, Alkaline Phosphatase 74, Total Protein 5.6L, Albumin 2.5L, Globulin 3.1, Albumin/Globulin Ratio 0.8L Height (Feet): 5 Height (Inches): 4.00 Weight (Pounds): 130 General Appearance: alert EENT: normal ENT inspection Neck: supple Cardiovascular: normal rate Respiratory/Chest: lungs clear Abdomen: normal bowel sounds, soft, tender Extremities: non-tender MARY HARRIS Jul 12, 2016 16:22
[2016-07-13] VITALS: BP 163/88
[2016-07-13 04:00] VITALS: BP 165/86
[2016-07-13] MEDS: Vancomycin oral 125mg/2.5ml ORAL SCH ×2 (05:06→11:52)
[2016-07-13] MEDS: Sucralfate 1gm tab ORAL SCH ×2 (08:06→11:52)
[2016-07-13] MEDS: Heparin 5000 units/ml inj SUBQ SCH (08:11)
[2016-07-13 08:25] VITALS: BP 164/88
--- NOTE | 2016-07-13 08:27 | Nephrology Progress Note ---
Assessment/Plan Problem List: (1) NISHI (acute kidney injury) (2) Abdominal pain (3) Fever Assessment nonoliguric nishi likely from contrast, creatinine lower, observe Subjective Constitutional: Reports: weakness HEENT: Reports: no symptoms Genitourinary: Reports: no symptoms Neurologic/Psychiatric: Reports: no symptoms Objective Objective Last 24 Hour Vital Signs Date Time Temp Pulse Resp B/P Pulse Ox O2 Delivery O2 Flow Rate FiO2 07/13/16 05:03 98.2 07/13/16 04:00 97.9 84 22 165/86 92 Room Air 07/13/16 00:00 98.2 83 20 163/88 94 Room Air 07/12/16 21:00 98.2 77 16 150/77 97 Room Air 07/12/16 20:00 98.2 91 18 165/99 94 Room Air 07/12/16 16:00 97.9 81 19 154/97 93 Room Air 07/12/16 13:52 160/93 07/12/16 12:00 97.5 84 19 160/93 95 Room Air Intake and Output 07/12/16 07/13/16 19:00 07:00 Intake Total 1240 ml 1125 ml Balance 1240 ml 1125 ml Intake Oral 240 ml IV Total 1000 ml 1125 ml # Voids 1 4 # Bowel Movements 1 Height (Feet): 5 Height (Inches): 4.00 Weight (Pounds): 130 General Appearance: no apparent distress, alert EENT: normal ENT inspection Neck: supple Cardiovascular: regular rhythm Respiratory/Chest: lungs clear Abdomen: non tender, soft Extremities: other - no edema Neurologic: deal architect II-XII grossly normal JULISA BUSTOS Jul 13, 2016 08:27
--- NOTE | 2016-07-13 08:48 | Diagnostic Imaging Report ---
Indication: Abdominal pain Technique: Spiral acquisitions obtained through the abdomen and pelvis. No oral contrast utilized, per emergency room physician request No IV contrast utilized, per referring physician request.. Multiplanar reconstructions were generated. Total dose length product 649 mGycm. CTDIvol(s) 13 mGy Comparison: 07/05/2016 Findings: Lack of IV contrast limits assessment of the solid organs. The gallbladder is distended. No definite stones, wall thickening, or pericholecystic edema. Again demonstrated is a cyst in segment 4A of the liver, as well as multiple small subcentimeter low-attenuation lesion which are too small to characterize, most likely benign simple cyst. There is a small capsular calcification again demonstrated. Previous demonstrated irregularity in the gallbladder tip is not evident currently. Extrahepatic bile ducts are mildly dilated. No definite downstream obstruction lesion demonstrated. The pancreas is unremarkable. The spleen demonstrates multiple calcifications, consistent with old granulomatous disease. The adrenals, kidneys are unremarkable. There is minimal bilateral perinephric fat stranding. No pelvic mass or adenopathy. No evidence of diverticulosis or diverticulitis. No definite colonic wall thickening. The appendix is not definitely demonstrated, but there are no findings to suggest acute appendicitis. No small bowel distention or small bowel wall thickening. Distal esophagus, stomach, duodenum are unremarkable. There is trace free intraperitoneal fluid now present. There is interim development of bilateral small to moderate-sized pleural effusions, and bilateral basilar compressive atelectasis and possibly some consolidation. Heart is mildly enlarged. Impression: Interim development of trace free intraperitoneal fluid, of uncertain significance/etiology, but not physiologic in a postmenopausal female No other definite acute abdominal or pelvic abnormality. No findings to correlate with stated clinical history of toxic megacolon and C. Difficile infection Interim development of bilateral small to moderate-sized pleural effusions, and basilar right compressive atelectasis and possibly consolidation Mildly ectatic extrahepatic bile ducts, without evidence of downstream obstructive pathology. Correlate with liver function tests Cardio megaly Other findings as noted, including hepatic capsular calcifications, liver cysts, splenic calcifications, The CT scanner at [facility] is accredited by the [employer] and the scans are performed using protocols designed to limit radiation exposure to as low as reasonably achievable to attain images of sufficient resolution adequate for diagnostic evaluation.
[2016-07-13] MEDS ORDERED: HYDROCODON-ACE1 EA13 ORAL (08:49)
[2016-07-13] MEDS ORDERED: VANCOMYCIN250 MG/5 M ORAL (08:49)
--- NOTE | 2016-07-13 11:20 | General Progress Note ---
Progress Note Progress Note Surgery: patient seen and examined at bedside. no acute events. doing well. no n/v/f/ c. states she does not have any abdominal pain. tolerating oral diet. ambulatory. +flatus. +BM (loose). Exam benign. Radiology reviewed and no acute process identified. C. Diff POSITIVE. No acute surgical intervention necessary at this time. Abx for c diff. will follow with you. Dion Rees Jul 13, 2016 11:20
--- NOTE | 2016-07-13 11:26 | Infectious Diseases Prog Note ---
Assessment/Plan Assessment/Plan antibiotics : vancomycin po A 1. c.diff colitis 2. fever improving P 1. continue po vancomycin 9 more days 2. will follow up cultures Subjective Constitutional: Denies: chills, fever Respiratory: Denies: dry cough, shortness of breath Gastrointestinal/Abdominal: Reports: diarrhea - decreasing, Denies: nausea, vomiting Musculoskeletal: Reports: pain - in abdomen decreasing Allergies: Coded Allergies: No Known Allergies (Unverified , 07/05/16) Objective Vital Signs Last 24 Hour Vital Signs Date Time Temp Pulse Resp B/P Pulse Ox O2 Delivery O2 Flow Rate FiO2 07/13/16 08:25 97.9 90 20 164/88 95 Room Air 07/13/16 05:03 98.2 07/13/16 04:00 97.9 84 22 165/86 92 Room Air 07/13/16 00:00 98.2 83 20 163/88 94 Room Air 07/12/16 21:00 98.2 77 16 150/77 97 Room Air 07/12/16 20:00 98.2 91 18 165/99 94 Room Air 07/12/16 16:00 97.9 81 19 154/97 93 Room Air 07/12/16 13:52 160/93 07/12/16 12:00 97.5 84 19 160/93 95 Room Air Height (Feet): 5 Height (Inches): 4.00 Weight (Pounds): 130 Respiratory/Chest: lungs clear Cardiovascular: normal rate, regular rhythm, no gallop/murmur Abdomen: soft, non tender Extremities: no edema SINAN AYOUB Jul 13, 2016 11:26
[2016-07-13 11:58] VITALS: BP 168/84
--- NOTE | 2016-07-13 12:25 | Physician Query ---
PLEASE COMPLETE THE DOCUMENT BEFORE SIGNING Dear Dr. Jesus Whitney Date: June Warehouse Distribution Associate/CDS Name: Steven Viera CDS Warehouse Distribution Associate / CDS Exercise your independent professional judgment when responding to query. Question asked do not imply a particular answer is desired/expected Clinical Documentation States: "Renal Failure NISHI due to RCIN improving .She is volume repleted, clinical" documented in the assessment notes of Dr. Pedro Velazquez. Clinical Findings Show: Creatinine 0.6, 0.5, 0.6, 2.4, 2.3, 2.0, 1.7 BUN 8,4,4,13, 14 Cr/BUN GFR_>60, >60, >60, 20.0, 21.0, 24.7, 29.8 Please Clarify the type of renal failure below: Etiology [x] ARF w/ Tubular Necrosis [x] ARF w/ Cortical Necrosis [] ARF w/ Medullary Necrosis [] Acute Renal Failure (unspecified) [] Other: If Chronic, please specify the stage: [] CKD Stage 1 [x] CKD Stage 2 [] CKD Stage 3 [] CKD Stage 4 [] CKD Stage 5 [] ESRD [] Not applicable Condition Present on Admission: [] Yes [x] No []Clinically Undeterminable Please also document in your Progress Notes and/or Discharge Summary and indicate if the condition was present on admission. Jesus Whitney MD Date/Time [id number]
--- NOTE | 2016-07-13 13:17 | Diagnostic Imaging Report ---
Indication: Abdominal pain Technique: MRI of the abdomen was performed in a 1.5 Sherri magnet. Pulse sequences obtained include coronal and axial T2 single shot fast spin echo breathhold and respiratory gated coronal T2 3-D M.R.C.P.; this data set was displayed in different projections or MIPs. In addition, multiple coronal oblique thin T2 weighted, fat saturated SE sequences obtained through the CBD. Comparison: CT abdomen pelvis 07/09/16 Findings: The biliary ducts are mildly prominent. There is no evidence of choledocholithiasis. Gallbladder is unremarkable. There are several cystic foci within the liver the largest of which is in the left lobe near the dome measuring approximately 3 cm. There are bilateral pleural effusions present. The pancreatic duct is unremarkable. There is no adrenal mass. There is no significant ascites demonstrated in the visualized part of the abdomen. Diverticula are noted in the colon. Impression: Some biliary ductal prominence without evidence of choledocholithiasis. Bilateral pleural effusions Diverticulosis of the colon Multiple liver cysts
[2016-07-13 16:00] VITALS: BP 153/94
--- NOTE | 2016-07-15 09:02 | Discharge Summary ---
Discharge Summary Hospital Course Date of Admission Jul 05, 2016 at 21:15 Date of Discharge Jul 13, 2016 at 18:30 Admitting Diagnosis abdominal pain HPI Irina Warren is a 71 year old female who was admitted on Jul 05, 2016 at 21:15 for Abdominal Pain Hospital Course dc summary dictated #[id number] Discharge Medications New Medications: Hydrocodone Bit/Acetaminophen 10-325* (Hydrocodon-Acetaminophn 10-325*) 1 Each Tablet 1 EA ORAL Q4H PRN, #30 TAB Vancomycin HCl (Vancomycin HCl) 500 Mg Vial 250 MG ORAL Q6HR for 10 Days, VIAL Discharge Condition Upon Discharge: stable Discharge Disposition Patient was discharged to Home (01) Discharge Diagnoses: Discharge Instructions Discharge Instructions Special Instructions I have been assigned to complete a D/C Summary on this account. I was not involved in the patient management Lucille Ruffin NP (Vanchtein) Jul 15, 2016 09:02
--- NOTE | 2016-07-15 23:28 | Discharge Summary 2 SIG ---
DATE OF ADMISSION: 07/05/2016 DATE OF DISCHARGE: 07/13/2016 REASON FOR ADMISSION: 71 years old female presented with abdominal pain and near syncope. She had episodes of abdominal pain for total of 10 days. Her doctor put her on antibiotic and Prilosec 2 days ago. The pain with intermittent epigastric pain , with radiation to the back. She denied fever or chills. She denied chest pain, shortness of breath, cough, sore throat, dysuria, flank pain, or change in bowel movement. She denied hematochezia, hematemesis, and melena. Workup in the emergency department found that the patient had a fever and leukocytosis. The patient was tachycardic with heart rate of 115, fever 102.7 and white blood count of 16.8. Normal lipase. LFTs were stable CAT scan of the abdomen and pelvis revealed hepatic cyst, but no other significant surgical pathology. There was no definite acute process but cholelithiasis was not completely exclude Antiemetic provided. Intravenous hydration was started. Patient was started on empiric antibiotics and admitted to the hospital for further management. ADMITTING DIAGNOSES: 1. Abdominal pain. 2. Leukocytosis. 3. Fever. 4. Possible sepsis HOSPITAL STAY: The patient was admitted to the hospital. The patient was started on IV fluids and empiric antibiotics. ID consult and GI consult were requested. Stool culture was negative. Stool for C. difficile was positive. Blood culture were negative. Urine culture was negative. ID followed. The patient was started on vancomycin p.o. and will be continued at home for additional 10 days. GI followed the patient. Abdominal ultrasound subsequently was ordered, which was negative. No ascites. Unremarkable bilateral kidneys, and just revealed a hepatic cyst. Pain management was provided. The patient was noted to be anemic. Stool OB was negative. CEA and CA 19-9 were within normal limits. LFTs were stable. Lipase was within normal limits. The patient undergone EGD due to the persistent nausea, anemia and vomiting. EGD revealed multiple antral erosions. Otherwise normal upper endoscopy. Antiemetic was provided as needed. Diet was slowly advanced. Surgery consult was requested. Surgeon concluded that there was no acute surgical problems on examination or by imaging. CT of the abdomen and pelvis was repeated and revealed development of trace free intraperitoneal fluid of uncertain significance, but no definite acute abdominopelvic abnormality was noted. No findings to correlate history of toxic colon or C. difficile infection. Mildly ectatic extrahepatic bile duct without evidence of downstream obstructive pathology. LFTs were stable. Diet was slowly advanced. However after the second CT, the patient developed acute renal failure likely related to radiocontrast induced nephropathy. Nephrology consult was requested. The acute renal failure was non oliguric. The patient was improving with IV fluids. She was volume depleted and required more intravenous hydration. Renal ultrasound revealed no hydronephrosis, normal echogenicity of bilateral kidneys. Creatinine down to 1.7 prior to discharge from initial with acute renal failure of 2.4. The patient also undergone MRI of the abdomen prior to discharge, which revealed a biliary ductal prominence without evidence of choledocholithiasis, bilateral pleural effusion, diverticulosis of the colon without diverticulitis, multiple liver cyst but no acute pathology. The patient was cleared for discharge. The patient was able to tolerate diet. Follow up with the primary doctor. DISCHARGE DIAGNOSES: 1. Intractable abdominal pain. 2. Gastritis status post esophagogastroduodenoscopy with multiple antral erosions. 3. Non-oliguric acute kidney injury secondary to radiocontrast induced nephropathy. 4. Acute renal failure with cortical necrosis. 5. Clostridium difficile colitis. 6, Sepsis due to C dif colitis. 7. Anemia. . DISCHARGE MEDICATIONS: See medication reconciliation list. DISCHARGE INSTRUCTIONS: The patient was discharged home. FOLLOWUP: Follow up with the primary medical doctor. Instructed to continue vancomycin for additional 10 days. Jesus Whitney M.D. I have been assigned to dictate discharge summary on this account and I was not involved in the patient's management. Lucille Ruffin (Vanchtein) N.P. DR: PUNEET JOB#: [id number] CC: [id number]
[2016-07-24 09:16] VITALS: BP 153/94
== END 2016-07-13 18:30 | disposition home or self-care (01) | DRG 371 ==
LOC: EDBD 15:50 → EMR 16:37 → 4W 21:15 → EDBEDREQ 23:00
PROC: 0DB68ZX Excision of Stomach, Via Natural or Artificial Opening Endoscopic, Diagnostic (ICD-10-PCS; principal; 2016-07-10 13:12)
DX: A04.7 Enterocolitis due to Clostridium difficile (principal); N17.0 Acute kidney failure with tubular necrosis; N17.1 Acute kidney failure with acute cortical necrosis; D64.9 Anemia, unspecified; K29.70 Gastritis, unspecified, without bleeding; E86.0 Dehydration; N14.1 Nephropathy induced by other drugs, medicaments and biological substances; T50.8X5A Adverse effect of diagnostic agents, initial encounter; K25.9 Gastric ulcer, unspecified as acute or chronic, without hemorrhage or perforation; N18.2 Chronic kidney disease, stage 2 (mild); R00.0 Tachycardia, unspecified
CPT/HCPCS: 36415; 74176; 74177; 74181; 76700; 76775; 80053; 81003; 82150; 82270; 82378; 82570; 82962; 83605; 83690; 84300; 84484; 85025; 85610; 85730; 86301; 87040; 87045; 87086; 87493; 93005; 94003; 94150; J2405; J2765